=== PATIENT | female | born 1995 | race American Indian/Alaskan Native ===

== ENCOUNTER 2017-09-30 12:58 | Outpatient (CLI) | payer MEDICAID ==
[2017-09-30 15:12] VITALS: BP 117/71
[2017-09-30 15:27] LABS: Bacteria,Urine 1+ /HPF (Negative); Bilirubin,Urine NEG (Negative); Blood,Urine NEG (Negative); Color,Urine Yellow (Yellow); Mucus,Urine FEW /HPF; Nitrite,Urine NEG (Negative); Protein,Urine <15 mg/dL mg/dL (Negative); RBC,Urine < 1.0 /HPF (0.0-6.0)
== END 2017-09-30 15:50 | disposition home or self-care (01) ==
LOC: TRG 12:58
PROVIDERS: ATTEND Obstetrics & Gynecology
DX: O47.1 False labor at or after 37 completed weeks of gestation (principal); Z3A.37 37 weeks gestation of pregnancy
CPT/HCPCS: 59025; 81001

== ENCOUNTER 2017-10-14 12:02 | Inpatient (IN) | payer MEDICAID ==
[2017-10-14] MEDS ORDERED: BRETHINE SUB-Q PRN (12:51)
[2017-10-14] MEDS ORDERED: MINERAL OIL PO PRN (12:51)
[2017-10-14] MEDS ORDERED: ePHEDrine SULFATE IV PRN (12:51)
[2017-10-14] MEDS ORDERED: BRETHINE IVP PRN (12:51)
[2017-10-14] MEDS ORDERED: XYLOCAINE 2% INFILTRATI ONE (12:51)
[2017-10-14] MEDS ORDERED: PITOCin/NS 20 UNIT/1000ML DRIP 20 UNITS/1,000 ML BAG IV SCH (13:00)
[2017-10-14] MEDS ORDERED: CERVIDIL VG ONE (13:43)
[2017-10-14] MEDS ORDERED: SUBLIMAZE IV PRN ×2 (13:43→14:00)
[2017-10-14 13:45] LABS: Hematocrit 36.3 % (30.3-42.9); Hemoglobin 12.5 gm/dl (10.1-14.3); Mean Corpuscular HGB Conc 35 % (30-34); Mean Corpuscular Hemoglobin 29 pg (28-32); Mean Corpuscular Volume 84 fl (79-97); Platelet Count 221 K/mm3 (140-440); Red Blood Count 4.31 M/mm3 (3.65-5.03); Red Cell Distribution Width 14.4 % (13.2-15.2)
[2017-10-14 13:45] LABS: Bacteria,Urine 1+ /HPF (Negative); Bilirubin,Urine NEG (Negative); Blood,Urine NEG (Negative); Color,Urine Straw (Yellow); Nitrite,Urine NEG (Negative); Protein,Urine <15 mg/dL mg/dL (Negative); Urobilinogen,Urine < 2.0 mg/dL (<2.0)
[2017-10-14 13:52] LABS: WBC,Urine < 1.0 /HPF (0.0-6.0)
--- NOTE | 2017-10-14 13:58 | History and Physical Report ---
History of Present Illness Date of admission: 10/14/17 12:02 Chief complaint: IOL for oligohydramnios History of present illness: 22yo G 3 P 2 0 0 2 at 39 weeks 1 day here from [facility] for IOL secondary to oligo. She had a BPP of 6/10 with SONIA of 3.72cm and nonreactive NST. Her care is comanaged with [facility] due to morbid obesity. She reports positive FMs but denies UCs or VB. Her course is complicated by abn pap (LSIL) & Vit D deficiency. Repeat pap recommended in 1 year. She was on vit D supplement. She is varicella nonimmune and GBS positive. 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, other (HPV) Family/Genetic History: diabetes, hypertension, other (hypercholesterolemia) - Obstetrical History Expected Date of Delivery: 10/20/17 Actual Gestation: 39 Week(s) 2 Day(s) : 3 Para: 2 Hx # Term Pregnancies: 2 Number of Pregnancies: 0 Spontaneous Abortions: 0 Induced : 0 Number of Living Children: 2 #1 Gender: Female year: 2,013 (05/21/2014) Birthweight: 3.09 kg Method of Delivery: Vaginal Gestational age at delivery: 41 Complications: none #2 Infant Gender: Female year: 2,[birth year] (03/22/2016) Birthweight: 2.977 kg Method of Delivery: Vaginal Gestational age at delivery: 39 Complications: none Medications and Allergies Allergies Allergy/AdvReac Type Severity Reaction Status Date / Time No Known Allergies Allergy Verified 09/30/17 14:22 Home Medications Medication Instructions Recorded Confirmed Last Taken Type No Known Home Medications [No 05/21/15 10/14/17 Unknown History Reported Home Medications] Active Meds: Active Medications Butorphanol Tartrate (Stadol) 2 mg IV Q2H PRN PRN Reason: Pain , Severe (7-10) Dinoprostone (Cervidil) 10 mg VG ONCE ONE Stop: 10/14/17 13:44 Ephedrine Sulfate (Ephedrine Sulfate) 10 mg IV Q2M PRN PRN Reason: Hypotension Fentanyl (Sublimaze) 100 mcg IV Q2H PRN PRN Reason: Labor Pain Lactated Ringer's (Lactated Ringers) 1,000 mls @ 125 mls/hr IV DIRECT NABIL Oxytocin/Sodium Chloride (Pitocin/Ns 20 Unit/1000ml Drip) 20 units in 1,000 mls @ 125 mls/hr IV DIRECT NABIL Oxytocin/Sodium Chloride (Pitocin/Ns 30 Unit/500ml) 30 units in 500 mls @ 1 mls /hr IV TITR NABIL; 1 MILLIUNITS/MIN PRN Reason: Protocol Influenza Virus Vaccine Quadrival (Fluarix Quad [id number](36 Mos+) 0.5 ml IM .ONCE ONE Stop: 10/15/17 12:01 Mineral Oil (Mineral Oil) 30 ml PO QHS PRN PRN Reason: Constipation Terbutaline Sulfate (Brethine) 0.25 mg SUB-Q ONCE PRN PRN Reason: Hyperstimulation/Hypertonicity Terbutaline Sulfate (Brethine) 0.25 mg IVP ONCE PRN PRN Reason: Hyperstimulation/Hypertonicity Review of Systems All systems: negative - Vital Signs Vital signs: Vital Signs Pulse BP 95 H 158/108 10/14/17 12:34 10/14/17 12:34 Temp Pulse Resp BP Pulse Ox 97.7 F 78 14 129/81 98 10/14/17 12:54 10/14/17 13:57 10/14/17 12:54 10/14/17 13:57 10/14/17 13:20 - Physical Exam Breasts: Positive: deferred Cardiovascular: Regular rate, Normal S1, Normal S2, No murmurs Lungs: Positive: Clear to auscultation, Normal air movement Abdomen: Positive: normal appearance, soft Genitourinary (Female): Positive: normal external genitalia, normal perenium Vulva: both: normal Vagina: Positive: normal moisture Uterus: Positive: normal size, normal contour Anus/Rectum: Positive: normal perianal skin Extremities: Positive: normal - Obstetrical FHR: auscultation normal, category 1 FHR comments: baseline 130, moderate variability, 15x15 accels, no decels Uterine Contraction Monitor Mode: External Cervical Dilatation: 1 (per RN) Cervical Effacement Percentage: 30 (per RN) station: -3 Uterine Contraction Pattern: Absent Results Result Diagrams: 10/14/17 13:30 10/14/17 13:30 Abnormal lab results 10/14/17 Range/Units 13:30 MCHC 35 H (30-34) % All other labs normal. Assessment and Plan - Patient Problems (1) Oligohydramnios in hood in third trimester Current Visit: Yes Status: Acute Plan to address problem: Admit to L&D for IOL with routine labor orders Start cervidil for cervical ripening Anticipate vaginal delivery (2) 39 weeks gestation of Current Visit: Yes Status: Acute (3) Gestational hypertension without significant proteinuria Current Visit: Yes Status: Acute Plan to address problem: STAT PIH labs (4) Morbid obesity with BMI of 45.0-49.9, adult Current Visit: Yes Status: Acute (5) GBS (group B Streptococcus carrier), +RV culture, currently Current Visit: Yes Status: Acute Plan to address problem: Start Ampicillin for GBS prophylaxis when in active labor
[2017-10-14 14:03] LABS: Alanine Aminotransferase 14 units/L (7-56)
[2017-10-14 14:33] LABS: Uric Acid 6.1 mg/dL (3.5-7.6)
[2017-10-15] MEDS: LACTATED RINGERS 1,000 ML IV SCH ×2 (04:58→12:52)
[2017-10-15] MEDS: PITOCin/NS 30 UNIT/500ML 30 UNITS/500 ML BAG IV SCH ×2 (05:00→06:18)
[2017-10-15] MEDS ORDERED: Fluarix Quad 2017-2018(36 MOS+ IM ONE (12:00)
--- NOTE | 2017-10-15 13:44 | Event Note ---
Date: 10/15/17 S: Pt lying in bed with her mom by the bedside. She is feeling her contractions but very mild. O: BP 122/75, HR 79, Pulse ox 99% FHR baseline 135, moderate variability, + accels, no decels CTXS q3mins (per pt) SVE 2/50/-3/vtx/intact Pitocin @ 20 mu/min A: 22yo G 3 P 2 0 0 2 @ 39 weeks 2 days IOL for oligo No active labor P: Continue routine labor orders Continue Oxytocin for labor induction Start ampicillin for GBS prophylaxis when in active labor Anticipate vaginal delivery
[2017-10-15] MEDS ORDERED: AMBIEN PO PRN (22:07)
[2017-10-16] MEDS ORDERED: PITOCin/NS 30 UNIT/500ML 30 UNITS/500 ML BAG IV SCH (06:00)
[2017-10-16] MEDS: LACTATED RINGERS 1,000 ML IV SCH ×2 (06:07→14:22)
--- NOTE | 2017-10-16 13:13 | Progress Note ---
Assessment and Plan - Patient Problems (1) Oligohydramnios in hood in third trimester Current Visit: Yes Status: Acute Plan to address problem: Continue routine labor orders Continue Oxytocin for labor induction Anticipate vaginal delivery (2) 39 weeks gestation of Current Visit: Yes Status: Acute (3) Morbid obesity with BMI of 45.0-49.9, adult Current Visit: Yes Status: Acute (4) GBS (group B Streptococcus carrier), +RV culture, currently Current Visit: Yes Status: Acute Plan to address problem: Start Ampicillin for GBS prophylaxis when in active labor Subjective - Subjective Date of service: 10/16/17 Principal diagnosis: IOL secondary to Oligo, 39w2d Interval history: 22yo G 3 P 2 0 0 2 at 39 weeks 1 day here from [facility] for IOL secondary to oligo. She had a BPP of 6/10 with SONIA of 3.72cm and nonreactive NST. Her care is comanaged with [facility] due to morbid obesity. She reports positive FMs but denies UCs or VB. Her course is complicated by abn pap (LSIL) & Vit D deficiency. Repeat pap recommended in 1 year. She was on vit D supplement. She is varicella nonimmune and GBS positive. Patient reports: movement normal, contractions (pain level 7/10; tolerable ) Objective - Vital Signs Vital Signs: Vital Signs - 12hr 10/16/17 10/16/17 10/16/17 01:15 01:20 01:25 Temperature Pulse Rate 105 H 104 H 98 H Respiratory Rate Blood Pressure Blood Pressure [Right] O2 Sat by Pulse 99 98 99 Oximetry 10/16/17 10/16/17 10/16/17 01:30 01:35 01:40 Temperature Pulse Rate 90 103 H 104 H Respiratory Rate Blood Pressure Blood Pressure [Right] O2 Sat by Pulse 98 97 97 Oximetry 10/16/17 10/16/17 10/16/17 01:45 03:00 03:33 Temperature 96.8 F L Pulse Rate 102 H 109 H Respiratory 20 Rate Blood Pressure Blood Pressure [Right] O2 Sat by Pulse 98 99 Oximetry 10/16/17 10/16/17 10/16/17 03:38 03:43 03:48 Temperature Pulse Rate 103 H 103 H 97 H Respiratory Rate Blood Pressure Blood Pressure [Right] O2 Sat by Pulse 98 98 99 Oximetry 10/16/17 10/16/17 10/16/17 03:53 03:58 04:03 Temperature Pulse Rate 104 H 99 H 103 H Respiratory Rate Blood Pressure Blood Pressure [Right] O2 Sat by Pulse 98 98 98 Oximetry 10/16/17 10/16/17 10/16/17 04:08 04:13 04:18 Temperature Pulse Rate 102 H 99 H 110 H Respiratory Rate Blood Pressure Blood Pressure [Right] O2 Sat by Pulse 98 99 98 Oximetry 10/16/17 10/16/17 10/16/17 04:23 04:28 04:29 Temperature Pulse Rate 96 H 104 H 81 Respiratory Rate Blood Pressure Blood Pressure [Right] O2 Sat by Pulse 97 98 94 Oximetry 10/16/17 10/16/17 10/16/17 04:33 04:38 04:41 Temperature Pulse Rate 92 H 98 H 103 H Respiratory Rate Blood Pressure Blood Pressure [Right] O2 Sat by Pulse 99 98 94 Oximetry 10/16/17 10/16/17 10/16/17 04:43 04:45 04:47 Temperature Pulse Rate 101 H 99 H 104 H Respiratory Rate Blood Pressure 133/81 Blood Pressure [Right] O2 Sat by Pulse 97 93 Oximetry 10/16/17 10/16/17 10/16/17 04:48 04:53 04:58 Temperature Pulse Rate 94 H 104 H 99 H Respiratory Rate Blood Pressure Blood Pressure [Right] O2 Sat by Pulse 94 97 98 Oximetry 10/16/17 10/16/17 10/16/17 05:03 05:08 05:13 Temperature Pulse Rate 91 H 94 H 99 H Respiratory Rate Blood Pressure Blood Pressure [Right] O2 Sat by Pulse 97 98 97 Oximetry 10/16/17 10/16/17 10/16/17 05:18 05:23 05:29 Temperature Pulse Rate 95 H 98 H 101 H Respiratory Rate Blood Pressure Blood Pressure [Right] O2 Sat by Pulse 98 98 98 Oximetry 10/16/17 10/16/17 10/16/17 05:33 05:39 05:44 Temperature Pulse Rate 97 H 99 H 90 Respiratory Rate Blood Pressure Blood Pressure [Right] O2 Sat by Pulse 98 99 99 Oximetry 10/16/17 10/16/17 10/16/17 05:48 05:53 05:55 Temperature Pulse Rate 87 92 H 104 H Respiratory Rate Blood Pressure Blood Pressure [Right] O2 Sat by Pulse 98 99 93 Oximetry 10/16/17 10/16/17 10/16/17 05:59 06:04 06:09 Temperature Pulse Rate 99 H 98 H 95 H Respiratory Rate Blood Pressure Blood Pressure [Right] O2 Sat by Pulse 98 99 98 Oximetry 10/16/17 10/16/17 10/16/17 06:13 06:32 06:36 Temperature Pulse Rate 110 H 108 H 103 H Respiratory Rate Blood Pressure Blood Pressure [Right] O2 Sat by Pulse 100 100 98 Oximetry 10/16/17 10/16/17 10/16/17 06:42 06:47 06:52 Temperature Pulse Rate 96 H 92 H 97 H Respiratory Rate Blood Pressure Blood Pressure [Right] O2 Sat by Pulse 98 99 99 Oximetry 10/16/17 10/16/17 10/16/17 06:57 07:01 07:02 Temperature 96.1 F L Pulse Rate 96 H 99 H 94 H Respiratory 16 Rate Blood Pressure 130/95 Blood Pressure 141/98 [Right] O2 Sat by Pulse 99 98 Oximetry 10/16/17 10/16/17 10/16/17 07:07 07:08 07:12 Temperature Pulse Rate 104 H 100 H 96 H Respiratory Rate Blood Pressure 137/102 141/98 Blood Pressure [Right] O2 Sat by Pulse 98 97 Oximetry 10/16/17 10/16/17 10/16/17 07:13 07:17 07:22 Temperature Pulse Rate 106 H 91 H Respiratory Rate Blood Pressure Blood Pressure [Right] O2 Sat by Pulse 45 L 99 94 Oximetry 10/16/17 10/16/17 10/16/17 07:27 07:31 07:32 Temperature Pulse Rate 102 H 96 H 88 Respiratory Rate Blood Pressure 131/87 Blood Pressure [Right] O2 Sat by Pulse 98 98 Oximetry 10/16/17 10/16/17 10/16/17 07:37 07:42 07:47 Temperature Pulse Rate 98 H 101 H 94 H Respiratory Rate Blood Pressure Blood Pressure [Right] O2 Sat by Pulse 98 99 98 Oximetry 10/16/17 10/16/17 10/16/17 07:52 07:57 08:01 Temperature Pulse Rate 93 H 98 H 93 H Respiratory Rate Blood Pressure 127/80 Blood Pressure [Right] O2 Sat by Pulse 99 99 Oximetry 10/16/17 10/16/17 10/16/17 08:02 08:05 08:07 Temperature Pulse Rate 106 H 94 H 97 H Respiratory Rate Blood Pressure Blood Pressure [Right] O2 Sat by Pulse 99 94 99 Oximetry 10/16/17 10/16/17 10/16/17 08:12 08:17 08:22 Temperature Pulse Rate 90 90 111 H Respiratory Rate Blood Pressure Blood Pressure [Right] O2 Sat by Pulse 99 98 98 Oximetry 10/16/17 10/16/17 10/16/17 08:27 08:31 08:32 Temperature Pulse Rate 96 H 93 H 83 Respiratory Rate Blood Pressure 124/90 Blood Pressure [Right] O2 Sat by Pulse 99 99 Oximetry 10/16/17 10/16/17 10/16/17 08:37 08:42 08:47 Temperature Pulse Rate 98 H 98 H 96 H Respiratory Rate Blood Pressure Blood Pressure [Right] O2 Sat by Pulse 98 98 97 Oximetry 10/16/17 10/16/17 10/16/17 08:52 08:57 09:01 Temperature Pulse Rate 83 97 H 95 H Respiratory Rate Blood Pressure 124/78 Blood Pressure [Right] O2 Sat by Pulse 98 98 Oximetry 10/16/17 10/16/17 10/16/17 09:02 09:07 09:12 Temperature Pulse Rate 83 95 H 89 Respiratory Rate Blood Pressure Blood Pressure [Right] O2 Sat by Pulse 99 98 97 Oximetry 10/16/17 10/16/17 10/16/17 09:17 09:22 09:27 Temperature Pulse Rate 109 H 101 H 94 H Respiratory Rate Blood Pressure Blood Pressure [Right] O2 Sat by Pulse 97 98 99 Oximetry 10/16/17 10/16/17 10/16/17 09:59 10:04 10:09 Temperature Pulse Rate 89 94 H 82 Respiratory Rate Blood Pressure Blood Pressure [Right] O2 Sat by Pulse 99 98 99 Oximetry 10/16/17 10/16/17 10/16/17 10:14 10:19 10:24 Temperature Pulse Rate 97 H 111 H 103 H Respiratory Rate Blood Pressure Blood Pressure [Right] O2 Sat by Pulse 98 99 98 Oximetry 10/16/17 10/16/17 10/16/17 10:29 10:34 10:39 Temperature Pulse Rate 93 H 87 91 H Respiratory Rate Blood Pressure Blood Pressure [Right] O2 Sat by Pulse 98 98 99 Oximetry 10/16/17 10/16/17 10/16/17 10:44 10:49 10:54 Temperature Pulse Rate 96 H 86 92 H Respiratory Rate Blood Pressure Blood Pressure [Right] O2 Sat by Pulse 99 99 99 Oximetry 10/16/17 10/16/17 10/16/17 10:59 11:04 11:09 Temperature Pulse Rate 95 H 94 H 101 H Respiratory Rate Blood Pressure Blood Pressure [Right] O2 Sat by Pulse 99 99 99 Oximetry 10/16/17 10/16/17 10/16/17 11:14 11:19 11:24 Temperature Pulse Rate 105 H 88 94 H Respiratory Rate Blood Pressure Blood Pressure [Right] O2 Sat by Pulse 99 100 100 Oximetry 10/16/17 10/16/17 10/16/17 11:29 11:34 11:39 Temperature Pulse Rate 91 H 95 H 93 H Respiratory Rate Blood Pressure Blood Pressure [Right] O2 Sat by Pulse 99 99 100 Oximetry 10/16/17 10/16/17 10/16/17 11:44 11:46 11:50 Temperature 96.6 F L Pulse Rate 93 H 98 H 98 H Respiratory 16 Rate Blood Pressure 130/78 Blood Pressure 130/78 [Right] O2 Sat by Pulse 99 Oximetry 10/16/17 10/16/17 10/16/17 11:59 12:04 12:09 Temperature Pulse Rate 53 L 83 94 H Respiratory Rate Blood Pressure Blood Pressure [Right] O2 Sat by Pulse 99 98 98 Oximetry 10/16/17 10/16/17 10/16/17 12:14 12:19 12:24 Temperature Pulse Rate 88 107 H 92 H Respiratory Rate Blood Pressure Blood Pressure [Right] O2 Sat by Pulse 91 98 98 Oximetry 10/16/17 10/16/17 10/16/17 12:29 12:34 12:39 Temperature Pulse Rate 85 100 H 85 Respiratory Rate Blood Pressure Blood Pressure [Right] O2 Sat by Pulse 99 98 98 Oximetry 10/16/17 10/16/17 10/16/17 12:44 12:49 12:54 Temperature Pulse Rate 90 81 87 Respiratory Rate Blood Pressure Blood Pressure [Right] O2 Sat by Pulse 99 98 99 Oximetry 10/16/17 10/16/17 12:59 13:04 Temperature Pulse Rate 89 89 Respiratory Rate Blood Pressure Blood Pressure [Right] O2 Sat by Pulse 98 99 Oximetry - Exam Cardiovascular: Regular rate, Normal S1, Normal S2, No murmurs Lungs: Clear to auscultation, Normal air movement Abdomen: Present: normal appearance, soft Vulva: both: normal Uterus: Present: normal FHR: auscultation normal, category 1 FHR comments: baseline 135, moderate variability, + accels, no decels Uterine Contraction Monitor Mode: External Cervical Dilatation: 2.5 Cervical Effacement Percentage: 50 station: -3 Uterine Contraction Pattern: Regular - Labs Labs: Abnormal Labs 10/14/17 10/14/17 13:30 13:30 MCHC 35 H Creatinine 0.5 L Lactate Dehydrogenase 213 H
[2017-10-16] MEDS: STADOL IV PRN ×2 (14:22→16:13)
[2017-10-16] MEDS ORDERED: NARCAN 2 MG/2 ML ONE (16:57)
[2017-10-16] MEDS ORDERED: PHENERGAN PO PRN (17:40)
[2017-10-16] MEDS ORDERED: NORCO 5/325 PO PRN (17:40)
[2017-10-16] MEDS ORDERED: LANSINOH TP PRN (17:40)
[2017-10-16] MEDS ORDERED: BENADRYL PO PRN (17:40)
[2017-10-16] MEDS ORDERED: MILK OF MAGNESIA PO PRN (17:40)
[2017-10-16] MEDS ORDERED: DULCOLAX PR PRN (17:40)
[2017-10-16] MEDS ORDERED: PHENERGAN PR PRN (17:40)
[2017-10-16] MEDS ORDERED: TYLENOL PO PRN (17:40)
[2017-10-16] MEDS ORDERED: TUCKS PAD TP PRN (17:40)
[2017-10-16] MEDS ORDERED: ZOFRAN IV PRN (17:40)
--- NOTE | 2017-10-16 17:56 | Procedure Note ---
OB Delivery Note - Delivery Date of Delivery: 10/16/17 (16:57) Surgeon: SHERMAN GONZÁLES Estimated blood loss: 200cc - Vaginal Delivery presentation: vertex Delivery position: OA Intrapartum events: prolonged latent phase, other(please specify) (precipitous active phase) Delivery induction: cervidil (later oxytocin) Delivery monitor: external FHT, external uterine Route of delivery: (16:57) Delivery placenta: spontaneous (17:06) Delivery cord: 3 umbilical vessels Episiotomy: none Delivery laceration: 1st degree (vaginal), vaginal side wall (left) Delivery repair: vicryl (3-0) Anesthesia: local Delivery comments: of a less vigorous term male @ 16:57. Baby placed on maternal abdomen and with stimulation became more vigorous. After 3 mins, umbilical cord double- clamped by CNM and cut by FOB. Placenta spontaneously delivered @ 17:06; Hang- side presenting. Moderate lochia noted. Fundal massage and IV pitocin bolus initiated. Fundus F/ML/U-2. Small lochia present. Small 1st degree vaginal laceration noted and repaired using 3-0 vicryl needle with just one stitch under local anesthesia. Pt tolerated the procedure well. Placenta intact; was discarded. Baby tachypneic per RN and resp called for evaluation. Baby transfered to NICU for observation. Mom in stable condition. - Infant A at 1 minute: 8 at 5 minutes: 9 Gender: Male (6 lbs 14 oz (3117 g); 18 in)
[2017-10-16] MEDS ORDERED: SODIUM CHLORIDE FLUSH SYRINGE 10 ML IV NR (18:00)
[2017-10-17] MEDS: MOTRIN PO SCH ×5 (00:07→23:36)
[2017-10-17 05:26] LABS: Hemoglobin 11.1 gm/dl (10.1-14.3)
--- NOTE | 2017-10-17 10:02 | Progress Note ---
Assessment and Plan A: PP Day #1 Stable P: Follow Routine Orders Depo Provera prior to discharge Plans Nexplanon at 6 Weeks D/C home in the AM RTO in 6 weeks Subjective - Subjective Date of service: 10/17/17 Principal diagnosis: IOL secondary to Oligo, 39w2d Patient reports: appetite normal, voiding normally, pain well controlled, flatus , ambulating normally : in NICU Objective - Vital Signs Latest vital signs: Vital Signs Temp Pulse Resp BP BP Pulse Ox 10/17/17 00:00 97.8 F 84 20 111/76 10/16/17 19:25 98.3 F 77 18 119/73 10/16/17 18:22 88 118/74 10/16/17 18:11 93 H 138/93 10/16/17 17:37 92 H 133/90 10/16/17 17:22 85 137/89 10/16/17 13:04 89 99 10/16/17 12:59 89 98 10/16/17 12:54 87 99 10/16/17 12:49 81 98 10/16/17 12:44 90 99 18 12:39 85 98 10/16/17 12:34 100 H 98 18 12:29 85 99 10/16/17 12:24 92 H 98 10/16/17 12:19 107 H 98 10/16/17 12:14 88 91 18 12:09 94 H 98 10/16/17 12:04 83 98 18 11:59 53 L 99 18 11:50 98 H 130/78 18 11:46 96.6 F L 98 H 16 130/78 18 11:44 93 H 99 18 11:39 93 H 100 18 11:34 95 H 99 18 11:29 91 H 99 18 11:24 94 H 100 18 11:19 88 100 18 11:14 105 H 99 18 11:09 101 H 99 10/16/17 11:04 94 H 99 18 10:59 95 H 99 18 10:54 92 H 99 18 10:49 86 99 18 10:44 96 H 99 02/18/18 10:39 91 H 99 10/16/17 10:34 87 98 10/16/17 10:29 93 H 98 10/16/17 10:24 103 H 98 10/16/17 10:19 111 H 99 10/16/17 10:14 97 H 98 10/16/17 10:09 82 99 10/16/17 10:04 94 H 98 Intake and Output 10/16/17 10/17/17 10/17/17 22:59 06:59 14:59 Intake Total 240 Balance 240 Intake: Oral 240 Other: Total, Intake Amount 240 # Voids Void 3 Estimated Blood Loss 200 - Exam Breasts: Present: normal Cardiovascular: Present: Regular rate Lungs: Present: Clear to auscultation, Normal air movement Abdomen: Present: normal appearance, soft, normal bowel sounds Uterus: Present: normal, firm, fundal height below umbilicus Extremities: Present: normal
--- NOTE | 2017-10-17 10:03 | Discharge Summary ---
Providers - Providers Date of Admission: 10/14/17 12:02 Date of discharge: 10/18/17 Attending physician: VAMSI GRAY MD Primary care physician: VAMSI GRAY MD Hospitalization Reason for admission: induction of labor Delivery: Episiotomy: none Laceration: 1st degree Other procedures: none complications: none Discharge diagnosis: IUP at term delivered [place] baby: male Condition at discharge: Good Disposition: DC-01 TO HOME OR SELFCARE Plan - Provider Discharge Summary Activity: routine, no sex for 6 weeks, no heavy lifting 4 weeks, no strenuous exercise Diet: routine Instructions: routine Additional instructions: [] Smoking cessation referral if applicable(refer to patient education folder for contact #) [] Refer to [facility] Booklet Call your doctor immediately for: * Fever > 100.5 * Heavy vaginal bleeding ( >1 pad per hour) * Severe persistent headache * Shortness of breath * Reddened, hot, painful area to leg or breast * Drainage or odor from incision. * Keep incision clean and dry at all times and follow doctor's instructions regarding bathing/showering - Follow up plan Follow up: VAMSI GRAY MD [Primary Care Provider] - 6 Weeks
[2017-10-17] MEDS ORDERED: DEPO-PROVERA (CONTRACEPTION) IM NR (10:30)
[2017-10-17] MEDS: PRENATAL VITAMIN PO SCH (14:33)
[2017-10-18] MEDS ORDERED: BOOSTRIX IM ONE (06:00)
[2017-10-18] MEDS: MOTRIN PO SCH ×2 (06:10→13:02)
[2017-10-18] MEDS: PRENATAL VITAMIN PO SCH (10:35)
[2017-10-18 16:56] VITALS: BP 123/77
== END 2017-10-18 16:10 | disposition home or self-care (01) | DRG 774 ==
LOC: LD 12:02 → OB 10-16 20:10
PROVIDERS: ADMIT Obstetrics & Gynecology; ATTEND Obstetrics & Gynecology
PROC: 10E0XZZ Delivery of Products of Conception, External Approach (ICD-10-PCS; principal; 2017-10-16)
PROC: 3E0P7VZ Introduction of Hormone into Female Reproductive, Via Natural or Artificial Opening (ICD-10-PCS; 2017-10-16)
PROC: 0HQ9XZZ Repair Perineum Skin, External Approach (ICD-10-PCS; 2017-10-16)
PROC: 3E0234Z Introduction of Serum, Toxoid and Vaccine into Muscle, Percutaneous Approach (ICD-10-PCS; 2017-10-18)
DX: O41.03X0 Oligohydramnios, third trimester, not applicable or unspecified (principal); O13.4 Gestational [pregnancy-induced] hypertension without significant proteinuria, complicating childbirth; O99.214 Obesity complicating childbirth; E66.01 Morbid (severe) obesity due to excess calories; O63.9 Long labor, unspecified; O62.3 Precipitate labor; O70.0 First degree perineal laceration during delivery; Z3A.39 39 weeks gestation of pregnancy; Z37.0 Single live birth; Z23 Encounter for immunization; Z83.3 Family history of diabetes mellitus; Z82.49 Family history of ischemic heart disease and other diseases of the circulatory system; Z68.42 Body mass index [BMI] 45.0-49.9, adult; O99.824 Streptococcus B carrier state complicating childbirth
CPT/HCPCS: 36415; 81001; 82565; 83615; 84450; 84460; 84550; 85014; 85018; 85027; 86592; 86850; 86900; 86901; 90471; 90686; 90715; 99211; G0463; J0595; J2310; J2590; J7120

== ENCOUNTER 2020-03-29 14:00 | Outpatient (CLI) | payer MEDICAID ==
[2020-03-29 14:48] VITALS: BP 116/59
[2020-03-29 17:35] LABS: Bilirubin,Urine NEG (Negative); Blood,Urine NEG (Negative); Color,Urine Yellow (Yellow); Mucus,Urine FEW /HPF; Protein,Urine <15 mg/dL mg/dL (Negative)
[2020-03-29] MEDS ORDERED: LACTATED RINGERS 500 ML IV ONE (18:24)
== END 2020-03-29 18:25 | disposition home or self-care (01) ==
LOC: TRG 14:00 → APU 14:02 → TRG 18:25
PROVIDERS: ATTEND Obstetrics & Gynecology
DX: O26.893 Other specified pregnancy related conditions, third trimester (principal); R10.9 Unspecified abdominal pain; Z3A.29 29 weeks gestation of pregnancy
CPT/HCPCS: 81001

== ENCOUNTER 2020-04-25 16:17 | Observation (INO) | payer MEDICAID ==
[2020-04-25] MEDS ORDERED: DOCUSATE SODIUM 100 MG CAP PO PRN (17:49)
[2020-04-25] MEDS ORDERED: diphenhydrAMINE 25 MG CAP PO PRN (17:49)
[2020-04-25] MEDS ORDERED: MAGNESIUM HYDROXIDE (MOM) ORAL LIQD UDC PO PRN (17:49)
[2020-04-25] MEDS ORDERED: guaiFENesin DM 200/20 MG ORAL LIQD 10 ML PO PRN (17:49)
[2020-04-25] MEDS ORDERED: ONDANSETRON 4 MG/2 ML INJ IV PRN (17:49)
[2020-04-25] MEDS ORDERED: SODIUM CHLORIDE NASAL SPRAY 44ML NS PRN (17:49)
[2020-04-25] MEDS ORDERED: ACETAMINOPHEN 325 MG TAB PO PRN (17:49)
[2020-04-25] MEDS ORDERED: PSEUDOEPHEDRINE 30 MG TAB PO PRN (17:49)
[2020-04-25] MEDS ORDERED: SENNOSIDES/DOCUSATE SODIUM 8.6/50 MG TAB PO PRN (17:49)
[2020-04-25] MEDS ORDERED: WITCH HAZEL/ GLYCERIN PAD TP PRN (17:49)
[2020-04-25] MEDS ORDERED: SIMETHICONE 80 MG CHEW TAB PO PRN (17:49)
[2020-04-25] MEDS ORDERED: LACTATED RINGERS 1,000 ML IV ONE (17:56)
[2020-04-25] MEDS ORDERED: LACTATED RINGERS 1,000 ML IV SCH (18:00)
--- NOTE | 2020-04-25 18:50 | History and Physical Report ---
History of Present Illness Date of examination: 04/25/20 Date of admission: 04/25/2020 Chief complaint: SOB History of present illness: 25 yo at 33w4d c/b GDM (on glyburide), Hx PIH in 2018 (on Aspirin), schizophrenia (on Haldol) with di/di twin presenting from [facility] clinic with complaint of SOB x 1-2 days. Mild chest discomfort associated with activity. Denies hx allergies, sick contacts. Denies current chest pain, congestion, loss of taste/smell, N/V, diarrhea. Reports symptoms improved when lying on side. Denies labor complaints or PIH symptoms. Active fetus x 2. Past History Past Medical History: other (GDM, Schizophrenia, obesity (class III), h/o pre-E. 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 (leg surgery) [employer] History: abnormal PAP smear Family/Genetic History: diabetes, hypertension Social history: no significant social history - Obstetrical History : 5 Para: 3 Hx # Term Pregnancies: 3 Number of Pregnancies: 1 Spontaneous Abortions: 0 Number of Living Children: 5 Medications and Allergies Allergies Allergy/AdvReac Type Severity Reaction Status Date / Time No Known Allergies Allergy Verified 09/30/17 14:22 Home Medications Medication Instructions Recorded Confirmed Last Taken Type Haldol 5 mg PO DAILY 04/11/20 04/25/20 04/24/20 21:00 History Aspirin [Aspirin BABY CHEW TAB] 81 mg PO QDAY tab.chew 04/12/20 04/25/20 04/24/20 21:00 Rx glyBURIDE [Diabeta] 2.5 mg PO QHS #30 tablet 04/12/20 04/25/20 04/24/20 21:00 Rx glyBURIDE [Diabeta] 5 mg PO QAM #30 tablet 04/12/20 04/25/20 04/24/20 21:00 Rx haloperidoL [Haldol] 5 mg PO HS tablet 04/12/20 04/25/20 04/24/20 21:00 Rx Active Meds: Active Medications Acetaminophen (Tylenol) 650 mg PO Q4H PRN PRN Reason: Pain MILD(1-3)/Fever >100.5/DIAZ Al Hydrox/Mg Hydrox/Simethicone (Alum-Mag Hydrox-Simeth 108-123-72lx/5ml) 30 ml PO Q6H PRN PRN Reason: Indigestion Diphenhydramine HCl (Benadryl) 25 mg PO Q6H PRN PRN Reason: Itching Docusate Sodium (Colace) 100 mg PO Q12H PRN PRN Reason: Constipation Glyburide (Diabeta) 5 mg PO BIDDIAB NABIL Guaifenesin (Guaifenesin Dm Syrup) 10 ml PO Q6H PRN PRN Reason: Cough Haloperidol (Haldol) 5 mg PO QHS NABIL Lactated Ringer's (Lactated Ringers) 1,000 mls @ 125 mls/hr IV DIRECT NABIL Lactated Ringer's (Lactated Ringers) 1,000 mls @ 999 mls/hr IV BOLUS ONE Stop: 04/25/20 18:56 Magnesium Hydroxide (Milk Of Magnesia) 30 ml PO QHS PRN PRN Reason: Laxative Effect Multivitamins/Iron/Calcium ( Vitamin) 1 each PO QDAY NABIL Ondansetron HCl (Zofran) 4 mg IV Q6H PRN PRN Reason: Nausea And Vomiting Pseudoephedrine HCl (Sudafed) 30 mg PO Q4H PRN PRN Reason: Nasal Congestion Senna/Docusate Sodium (Senokot S) 2 tab PO Q12H PRN PRN Reason: Laxative Effect Simethicone (Mylicon) 80 mg PO Q6H PRN PRN Reason: Gas pain Sodium Chloride (Deep Sea) 2 spray NS Q4H PRN PRN Reason: Congestion Witch Radha/Glycerin (Tucks Pad) 1 each TP PRN PRN PRN Reason: Hemorrhoids - Vital Signs Vital signs: Vital Signs Temp Pulse Resp BP 98.7 F 137 H 16 113/72 04/25/20 17:23 04/25/20 17:23 04/25/20 17:23 04/25/20 17:23 Temp Pulse Resp BP Pulse Ox 98.7 F 110 H 16 113/72 99 04/25/20 17:23 04/25/20 17:56 04/25/20 17:23 04/25/20 17:23 04/25/20 17:56 - Physical Exam Breasts: Positive: deferred Cardiovascular: Regular rate, Normal S1, Normal S2 Lungs: Positive: Clear to auscultation, Other (mild expiratory wheezes in bilateral lung bases) Abdomen: Positive: normal appearance, other (gravid) - Obstetrical FHR: category 1 Uterine Contraction Monitor Mode: Palpation Uterine Contraction Pattern: Absent Results Result Diagrams: 04/25/20 17:49 04/25/20 Unknown All other labs normal. Assessment and Plan - Patient Problems (1) Schizophrenia Current Visit: Yes Status: Acute Plan to address problem: No current issues. Continue home Haldol 5mg QHS. (2) Twin gestation in third trimester Current Visit: Yes Status: Acute Plan to address problem: No current issues. Routine antepartum care. (3) Shortness of breath during Current Visit: Yes Status: Acute Plan to address problem: --New onset SOB of unclear origin. No sick contacts or recent illness. Persistent tachycardia to 120-130s with normal saturation. Need to r/o series cardiopulmonary pathology such as PE. --CBC, CMP, Troponin, CXR, EKG, COVID test ordered --Dispo pending improvement of symptoms (4) Gestational diabetes Current Visit: No Status: Acute Plan to address problem: Continue glyburide 5mg BID. GDM diet.
[2020-04-25 19:00] LABS: Basophils % (Auto) 0.4 % (0.0-1.8); Eosinophils # (Auto) 0.1 K/mm3 (0.0-0.4); Eosinophils % (Auto) 1.4 % (0.0-4.3); Hematocrit 34.8 % (30.3-42.9); Hemoglobin 11.4 gm/dl (10.1-14.3); Lymphocytes # (Auto) 1.7 K/mm3 (1.2-5.4); Lymphocytes % (Auto) 21.1 % (13.4-35.0); Mean Corpuscular HGB Conc 33 % (30-34); Mean Corpuscular Volume 78 fl (79-97); Monocytes # (Auto) 0.8 K/mm3 (0.0-0.8); Monocytes % (Auto) 9.2 % (0.0-7.3); Platelet Count 226 K/mm3 (140-440); Red Blood Count 4.44 M/mm3 (3.65-5.03); Red Cell Distribution Width 15.4 % (13.2-15.2)
--- NOTE | 2020-04-25 19:02 | XRay Report ---
CHEST 2 VIEWS INDICATION / CLINICAL INFORMATION: shortness of breath in . COMPARISON: None available. FINDINGS: SUPPORT DEVICES: None. HEART / MEDIASTINUM: No significant abnormality. LUNGS / PLEURA: Opacity in the left suprahilar region favored to represent a prominent vascular struc ture. No significant pulmonary or pleural abnormality. No pneumothorax or effusion. ADDITIONAL FINDINGS: No significant additional findings. IMPRESSION: 1. No acute findings. 2. Opacity in the left suprahilar region favored to represent a prominent vascular structure. Signer Name: Jitendra Reynaga MD Signed: 04/25/2020 6:58 PM Workstation Name: [id number]
[2020-04-25 19:13] LABS: Alanine Aminotransferase 6 units/L (7-56); Albumin 3.3 g/dL (3.9-5); Blood Urea Nitrogen 4 mg/dL (7-17); Calcium 9.8 mg/dL (8.4-10.2); Hemolysis Index 6
[2020-04-25 19:28] LABS: BUN/Creatinine Ratio 8
[2020-04-25] MEDS ORDERED: HALOPERIDOL 5 MG TAB PO SCH (22:00)
--- NOTE | 2020-04-25 23:34 | Event Note ---
Date: 04/25/20 Labs wnl. Troponin neg. Overall benign CXR. However EKG with sinus tachycardia with T-wave abnormality. Will speak with ER/cardiology regarding EKG. Will consider V/Q scan in AM. Patient informed and expressed understanding. No current complaints.
[2020-04-26] MEDS: ALUM-MAG HYDROXIDE-SIMETHICONE 200-200-20MG/5ML ORAL LIQD 30 ML PO PRN ×2 (01:00→12:19)
--- NOTE | 2020-04-26 07:01 | Progress Note ---
Assessment and Plan - Patient Problems (1) Schizophrenia Current Visit: Yes Status: Acute Plan to address problem: No current issues. Continue home Haldol 5mg QHS. (2) Twin gestation in third trimester Current Visit: Yes Status: Acute Plan to address problem: No current issues. Routine antepartum care. (3) Shortness of breath during Current Visit: Yes Status: Acute Plan to address problem: --Unclear origin, however to persistent SOB and EKG abnormalities (sinus tachycardia with T wave abnormalities). Need to r/o cardiopulmonary and infectious etiology --V/Q scan and Echo ordered to assess for PE --COVID test ordered --Dispo pending improvement of symptoms (4) Gestational diabetes Current Visit: No Status: Acute Plan to address problem: Continue glyburide 5mg BID. GDM diet. Subjective - Subjective Date of service: 04/26/20 Principal diagnosis: SOB in Interval history: 25 yo at 33w4d c/b GDM (on glyburide), Hx PIH in 2018 (on Aspirin), schizophrenia (on Haldol) with di/di twin presenting from [facility] with complaint of SOB x 1-2 days. Mild chest discomfort associated with activity. Denies hx allergies, sick contacts. Denies current chest pain, congestion, loss of taste/smell, N/V, diarrhea. Reports symptoms improved when lying on side. Denies labor complaints or PIH symptoms. Active fetus x 2. Patient with persistent SOB. Plan for further workup today. Objective - Vital Signs Vital Signs: Vital Signs - 12hr 04/25/20 04/25/20 04/25/20 19:36 20:10 20:15 Temperature Pulse Rate 109 H 119 H 111 H Respiratory Rate Blood Pressure 113/79 Blood Pressure [Left] O2 Sat by Pulse 97 100 Oximetry 04/25/20 04/25/20 04/25/20 20:21 20:26 20:31 Temperature Pulse Rate 113 H 105 H 110 H Respiratory Rate Blood Pressure Blood Pressure [Left] O2 Sat by Pulse 100 100 100 Oximetry 04/25/20 04/25/20 04/25/20 20:36 20:40 20:41 Temperature 98.4 F Pulse Rate 107 H 109 H 104 H Respiratory 20 Rate Blood Pressure Blood Pressure 113/79 [Left] O2 Sat by Pulse 100 100 100 Oximetry 04/25/20 04/25/20 04/25/20 20:46 20:51 20:56 Temperature Pulse Rate 104 H 97 H 103 H Respiratory Rate Blood Pressure Blood Pressure [Left] O2 Sat by Pulse 100 98 100 Oximetry 04/25/20 04/25/20 04/25/20 21:01 21:06 21:11 Temperature Pulse Rate 104 H 105 H 109 H Respiratory Rate Blood Pressure Blood Pressure [Left] O2 Sat by Pulse 100 100 100 Oximetry 04/25/20 04/25/20 04/25/20 21:14 21:16 21:21 Temperature Pulse Rate 62 113 H 110 H Respiratory Rate Blood Pressure Blood Pressure [Left] O2 Sat by Pulse 67 L 100 100 Oximetry 04/25/20 04/25/20 04/25/20 21:26 21:31 21:36 Temperature Pulse Rate 135 H 128 H 108 H Respiratory Rate Blood Pressure Blood Pressure [Left] O2 Sat by Pulse 100 100 100 Oximetry 04/25/20 04/25/20 04/25/20 21:41 21:46 21:51 Temperature Pulse Rate 109 H 109 H 110 H Respiratory Rate Blood Pressure Blood Pressure [Left] O2 Sat by Pulse 100 99 99 Oximetry 04/25/20 04/25/20 04/25/20 21:56 22:01 22:26 Temperature Pulse Rate 105 H 102 H 109 H Respiratory Rate Blood Pressure Blood Pressure [Left] O2 Sat by Pulse 100 100 100 Oximetry 04/25/20 04/25/20 04/25/20 22:31 23:00 23:05 Temperature Pulse Rate 109 H 121 H 118 H Respiratory Rate Blood Pressure Blood Pressure [Left] O2 Sat by Pulse 100 100 100 Oximetry 04/25/20 04/25/20 04/25/20 23:10 23:16 23:21 Temperature Pulse Rate 104 H 120 H 125 H Respiratory Rate Blood Pressure Blood Pressure [Left] O2 Sat by Pulse 99 99 99 Oximetry 04/25/20 04/25/20 04/25/20 23:26 23:31 23:36 Temperature Pulse Rate 107 H 123 H 121 H Respiratory Rate Blood Pressure Blood Pressure [Left] O2 Sat by Pulse 99 99 99 Oximetry 04/25/20 04/25/20 04/26/20 23:41 23:58 00:03 Temperature Pulse Rate 111 H 124 H 125 H Respiratory Rate Blood Pressure Blood Pressure [Left] O2 Sat by Pulse 99 98 99 Oximetry 04/26/20 04/26/20 04/26/20 00:06 00:08 00:13 Temperature Pulse Rate 54 L 114 H 125 H Respiratory Rate Blood Pressure Blood Pressure [Left] O2 Sat by Pulse 80 L 100 99 Oximetry 04/26/20 04/26/20 04/26/20 00:18 00:23 00:28 Temperature Pulse Rate 118 H 105 H 124 H Respiratory Rate Blood Pressure Blood Pressure [Left] O2 Sat by Pulse 99 99 100 Oximetry 04/26/20 04/26/20 04/26/20 00:33 00:38 00:43 Temperature Pulse Rate 106 H 124 H 131 H Respiratory Rate Blood Pressure Blood Pressure [Left] O2 Sat by Pulse 100 100 100 Oximetry 04/26/20 04/26/20 04/26/20 00:45 00:46 00:48 Temperature 98.8 F Pulse Rate 115 H 118 H 112 H Respiratory 18 Rate Blood Pressure 113/65 Blood Pressure 113/65 [Left] O2 Sat by Pulse 98 100 Oximetry 04/26/20 04/26/20 04/26/20 00:53 00:58 01:03 Temperature Pulse Rate 97 H 127 H 131 H Respiratory Rate Blood Pressure Blood Pressure [Left] O2 Sat by Pulse 100 100 99 Oximetry 04/26/20 04/26/20 04/26/20 01:16 01:21 01:26 Temperature Pulse Rate 106 H 86 107 H Respiratory Rate Blood Pressure Blood Pressure [Left] O2 Sat by Pulse 99 100 100 Oximetry 04/26/20 04/26/20 04/26/20 01:31 01:36 01:41 Temperature Pulse Rate 104 H 108 H 106 H Respiratory Rate Blood Pressure Blood Pressure [Left] O2 Sat by Pulse 99 99 99 Oximetry 04/26/20 04/26/20 04/26/20 01:46 01:51 01:56 Temperature Pulse Rate 104 H 103 H 109 H Respiratory Rate Blood Pressure Blood Pressure [Left] O2 Sat by Pulse 98 99 99 Oximetry 04/26/20 04/26/20 04/26/20 02:01 02:06 02:11 Temperature Pulse Rate 103 H 106 H 102 H Respiratory Rate Blood Pressure Blood Pressure [Left] O2 Sat by Pulse 98 98 98 Oximetry 04/26/20 04/26/20 04/26/20 02:16 02:21 02:26 Temperature Pulse Rate 109 H 107 H 107 H Respiratory Rate Blood Pressure Blood Pressure [Left] O2 Sat by Pulse 99 98 99 Oximetry 04/26/20 04/26/20 04/26/20 02:31 02:36 02:41 Temperature Pulse Rate 102 H 104 H 131 H Respiratory Rate Blood Pressure Blood Pressure [Left] O2 Sat by Pulse 98 98 98 Oximetry 04/26/20 04/26/20 04/26/20 02:46 02:51 02:56 Temperature Pulse Rate 129 H 119 H 119 H Respiratory Rate Blood Pressure Blood Pressure [Left] O2 Sat by Pulse 99 99 98 Oximetry 04/26/20 04/26/20 04/26/20 03:01 03:06 03:11 Temperature Pulse Rate 125 H 120 H 123 H Respiratory Rate Blood Pressure Blood Pressure [Left] O2 Sat by Pulse 99 98 97 Oximetry 04/26/20 04/26/20 04/26/20 03:16 03:21 03:26 Temperature Pulse Rate 122 H 112 H 109 H Respiratory Rate Blood Pressure Blood Pressure [Left] O2 Sat by Pulse 97 99 98 Oximetry 04/26/20 04/26/20 04/26/20 03:31 03:36 03:41 Temperature Pulse Rate 106 H 109 H 107 H Respiratory Rate Blood Pressure Blood Pressure [Left] O2 Sat by Pulse 98 97 98 Oximetry 04/26/20 04/26/20 04/26/20 03:46 03:51 03:56 Temperature Pulse Rate 108 H 117 H 109 H Respiratory Rate Blood Pressure Blood Pressure [Left] O2 Sat by Pulse 97 98 100 Oximetry 04/26/20 04/26/20 04/26/20 04:01 04:06 04:11 Temperature Pulse Rate 113 H 105 H 113 H Respiratory Rate Blood Pressure Blood Pressure [Left] O2 Sat by Pulse 98 98 98 Oximetry 04/26/20 04/26/20 04/26/20 04:16 04:21 04:26 Temperature Pulse Rate 117 H 106 H 109 H Respiratory Rate Blood Pressure Blood Pressure [Left] O2 Sat by Pulse 100 97 92 Oximetry 04/26/20 04/26/20 04/26/20 04:31 04:36 04:41 Temperature Pulse Rate 121 H 116 H 123 H Respiratory Rate Blood Pressure Blood Pressure [Left] O2 Sat by Pulse 98 95 98 Oximetry 04/26/20 04/26/20 04/26/20 04:46 04:51 04:56 Temperature Pulse Rate 112 H 115 H 107 H Respiratory Rate Blood Pressure Blood Pressure [Left] O2 Sat by Pulse 97 97 97 Oximetry 04/26/20 04/26/20 04/26/20 05:01 05:06 05:11 Temperature Pulse Rate 97 H 111 H 102 H Respiratory Rate Blood Pressure Blood Pressure [Left] O2 Sat by Pulse 96 97 96 Oximetry 04/26/20 04/26/20 04/26/20 05:16 05:21 05:26 Temperature Pulse Rate 107 H 116 H 116 H Respiratory Rate Blood Pressure Blood Pressure [Left] O2 Sat by Pulse 98 98 97 Oximetry 04/26/20 04/26/20 04/26/20 05:32 05:37 05:42 Temperature Pulse Rate 114 H 116 H 119 H Respiratory Rate Blood Pressure Blood Pressure [Left] O2 Sat by Pulse 100 99 99 Oximetry 04/26/20 04/26/20 04/26/20 05:47 05:52 05:57 Temperature Pulse Rate 118 H 105 H 105 H Respiratory Rate Blood Pressure Blood Pressure [Left] O2 Sat by Pulse 99 99 99 Oximetry 04/26/20 04/26/20 04/26/20 06:02 06:03 06:08 Temperature Pulse Rate 117 H 111 H Respiratory Rate Blood Pressure Blood Pressure [Left] O2 Sat by Pulse 89 100 98 Oximetry 04/26/20 04/26/20 04/26/20 06:13 06:18 06:23 Temperature Pulse Rate 109 H 105 H 109 H Respiratory Rate Blood Pressure Blood Pressure [Left] O2 Sat by Pulse 99 98 99 Oximetry 04/26/20 04/26/20 04/26/20 06:28 06:33 06:38 Temperature Pulse Rate 114 H 109 H 110 H Respiratory Rate Blood Pressure Blood Pressure [Left] O2 Sat by Pulse 99 99 98 Oximetry 04/26/20 04/26/20 04/26/20 06:43 06:48 06:53 Temperature Pulse Rate 120 H 114 H 108 H Respiratory Rate Blood Pressure Blood Pressure [Left] O2 Sat by Pulse 99 98 98 Oximetry - Exam Cardiovascular: Other (tachycardiac) Lungs: Clear to auscultation Abdomen: Present: normal appearance, other (gravid) Uterine Contraction Pattern: Absent - Labs Labs: Abnormal Labs 04/25/20 04/25/20 17:49 Unknown MCV 78 L MCH 26 L RDW 15.4 H [place] % (Auto) 9.2 H Sodium 135 L Carbon Dioxide 17 L BUN 4 L Creatinine 0.5 L Glucose 169 H ALT 6 L Alkaline Phosphatase 171 H Albumin 3.3 L Laboratory Results - last 24 hr 04/25/20 04/25/20 04/25/20 17:49 22:34 Unknown WBC 8.2 RBC 4.44 Hgb 11.4 Hct 34.8 MCV 78 L MCH 26 L MCHC 33 RDW 15.4 H Plt Count 226 Lymph % (Auto) 21.1 [place] % (Auto) 9.2 H Eos % (Auto) 1.4 Baso % (Auto) 0.4 Lymph # 1.7 [place] # 0.8 Eos # 0.1 Baso # 0.0 Seg Neutrophils % 67.9 Seg Neutrophils # 5.6 Sodium 135 L Potassium 3.9 Chloride 103.0 Carbon Dioxide 17 L Anion Gap 19 BUN 4 L Creatinine 0.5 L Estimated GFR > 60 BUN/Creatinine Ratio 8 Glucose 169 H POC Glucose 96 Calcium 9.8 Total Bilirubin 0.70 AST 15 ALT 6 L Alkaline Phosphatase 171 H Troponin T Total Protein 6.7 Albumin 3.3 L Albumin/Globulin Ratio 1.0 04/25/20 Unknown WBC RBC Hgb Hct MCV MCH MCHC RDW Plt Count Lymph % (Auto) [place] % (Auto) Eos % (Auto) Baso % (Auto) Lymph # [place] # Eos # Baso # Seg Neutrophils % Seg Neutrophils # Sodium Potassium Chloride Carbon Dioxide Anion Gap BUN Creatinine Estimated GFR BUN/Creatinine Ratio Glucose POC Glucose Calcium Total Bilirubin AST ALT Alkaline Phosphatase Troponin T < 0.010 Total Protein Albumin Albumin/Globulin Ratio
[2020-04-26] MEDS ORDERED: glyBURIDE 5 MG TAB PO SCH (08:00)
--- NOTE | 2020-04-26 08:54 | Consultation ---
History of Present Illness Consult date: 04/26/20 Requesting physician: FRANKLIN MAYEN JR Consult reason: other (abnormal ECG) History of present illness: Pt is a 25 y.o. female, previously unknown to our practice, who is currently in her 3rd trimester (33wk 6d) with twins, G5. Pt presented with complaints of SOB x 3 days. She also reports occasional pain in her calves. Pt denies any additional cardiac complaints. Pt noted to be tachycardic in the 110s prior to exam. Elevated d-dimer upon arrival. V/Q scan revealed intermediate-high probability of PE. Past History Past Medical History: other (schizophrenia) Social history: denies: smoking, alcohol abuse Medications and Allergies Allergies Allergy/AdvReac Type Severity Reaction Status Date / Time No Known Allergies Allergy Verified 09/30/17 14:22 Home Medications Medication Instructions Recorded Confirmed Last Taken Type Haldol 5 mg PO DAILY 04/11/20 04/25/20 04/24/20 21:00 History Aspirin [Aspirin BABY CHEW TAB] 81 mg PO QDAY tab.chew 04/12/20 04/25/20 04/24/20 21:00 Rx glyBURIDE [Diabeta] 2.5 mg PO QHS #30 tablet 04/12/20 04/25/20 04/24/20 21:00 Rx glyBURIDE [Diabeta] 5 mg PO QAM #30 tablet 04/12/20 04/25/20 04/24/20 21:00 Rx haloperidoL [Haldol] 5 mg PO HS tablet 04/12/20 04/25/20 04/24/20 21:00 Rx Active Meds: Active Medications Acetaminophen (Tylenol) 650 mg PO Q4H PRN PRN Reason: Pain MILD(1-3)/Fever >100.5/DIAZ Al Hydrox/Mg Hydrox/Simethicone (Alum-Mag Hydrox-Simeth [phone]/5ml) 30 ml PO Q6H PRN PRN Reason: Indigestion Last Admin: 04/26/20 01:00 Dose: 30 ml Documented by: Diphenhydramine HCl (Benadryl) 25 mg PO Q6H PRN PRN Reason: Itching Docusate Sodium (Colace) 100 mg PO Q12H PRN PRN Reason: Constipation Glyburide (Diabeta) 5 mg PO BIDDIAB [facility] Guaifenesin (Guaifenesin Dm Syrup) 10 ml PO Q6H PRN PRN Reason: Cough Haloperidol (Haldol) 5 mg PO QHS [facility] Last Admin: 04/25/20 22:15 Dose: 5 mg Documented by: Lactated Ringer's (Lactated Ringers) 1,000 mls @ 125 mls/hr IV DIRECT NABIL Magnesium Hydroxide (Milk Of Magnesia) 30 ml PO QHS PRN PRN Reason: Laxative Effect Multivitamins/Iron/Calcium ( Vitamin) 1 each PO QDAY [facility] Ondansetron HCl (Zofran) 4 mg IV Q6H PRN PRN Reason: Nausea And Vomiting Pseudoephedrine HCl (Sudafed) 30 mg PO Q4H PRN PRN Reason: Nasal Congestion Senna/Docusate Sodium (Senokot S) 2 tab PO Q12H PRN PRN Reason: Laxative Effect Simethicone (Mylicon) 80 mg PO Q6H PRN PRN Reason: Gas pain Sodium Chloride (Deep Sea) 2 spray NS Q4H PRN PRN Reason: Congestion Witch Radha/Glycerin (Tucks Pad) 1 each TP PRN PRN PRN Reason: Hemorrhoids Review of Systems Constitutional: no fever, no chills, no sweats Ears, nose, mouth and throat: no nasal congestion, no sore throat Cardiovascular: shortness of breath, claudication, no chest pain, no orthopnea, no palpitations, no edema, no syncope, no lightheadedness, no dyspnea on ex ertion, no paroxysmal nocturnal dyspnea Respiratory: shortness of breath, no cough, no dyspnea on exertion Gastrointestinal: no abdominal pain, no nausea, no vomiting, no diarrhea, no constipation Genitourinary Female: no pelvic pain, no flank pain, no dysuria Musculoskeletal: no neck stiffness, no neck pain, no myalgias Integumentary: no rash, no wounds Neurological: no head injury, no paralysis, no weakness, no parathesias, no numbness, no tingling, no seizures, no syncope, no vertigo, no headaches Endocrine: no cold intolerance, no heat intolerance, no polydipsia, no polyuria Hematologic/Lymphatic: no easy bruising, no easy bleeding Allergic/Immunologic: no urticaria Physical Examination Last Vital Signs Temp 98.1 F 04/26/20 15:30 Pulse 88 04/26/20 15:30 Resp 20 04/26/20 15:30 BP 106/63 04/26/20 15:30 Pulse Ox 98 04/26/20 15:30 General appearance: no acute distress HEENT: Positive: EOMI, Normocephaly, Mucus Membranes Moist Neck: Positive: neck supple, trachea midline. Negative: JVD/HJR Cardiac: Positive: Reg Rate and Rhythm, S1/S2, Tachycardia Lungs: Positive: clear to auscultation (bilaterally) Neuro: Positive: Grossly Intact Abdomen: Positive: Soft, Active Bowel Sounds. Negative: Tender Skin: Negative: Rash Musculoskeletal: No Fluid Collection, No Pain, Normal Range of Motion Extremities: Present: upper extr. pulses, lower extr. pulses. Absent: edema Results 04/26/20 13:50 04/25/20 Unknown Cardiac Enzymes 04/25/20 Range/Units Unknown AST 15 (5-40) units/L CBC 04/25/20 Range/Units 17:49 WBC 8.2 (4.5-11.0) K/mm3 RBC 4.44 (3.65-5.03) M/mm3 Hgb 11.4 (10.1-14.3) gm/dl Hct 34.8 (30.3-42.9) % Plt Count 226 (140-440) K/mm3 Lymph # 1.7 (1.2-5.4) K/mm3 [place] # 0.8 (0.0-0.8) K/mm3 Eos # 0.1 (0.0-0.4) K/mm3 Baso # 0.0 (0.0-0.1) K/mm3 Comprehensive Metabolic Panel 04/25/20 Range/Units Unknown Sodium 135 L (137-145) mmol/L Potassium 3.9 (3.6-5.0) mmol/L Chloride 103.0 (98-107) mmol/L Carbon Dioxide 17 L (22-30) mmol/L BUN 4 L (7-17) mg/dL Creatinine 0.5 L (0.6-1.2) mg/dL Glucose 169 H (65-100) mg/dL Calcium 9.8 (8.4-10.2) mg/dL AST 15 (5-40) units/L ALT 6 L (7-56) units/L Alkaline Phosphatase 171 H (35-129) units/L Total Protein 6.7 (6.3-8.2) g/dL Albumin 3.3 L (3.9-5) g/dL - Imaging and Cardiology Echo: pending EKG: report reviewed, image reviewed - EKG Interpretation EKG: no acute changes EKG interpretations - Telemetry EKG Rhythm: Sinus Tachycardia - EKG Sinus rhythms and dysrhythmias: sinus tachycardia Assessment and Plan Obtain echo. Initiate heparin drip. Continue other present mgmt. Pt seen in conjunction with Dr. RAFIQ Cates, who agrees with assessment and plan of care. - Patient Problems (1) Acute pulmonary embolism Current Visit: Yes Status: Suspected (2) Twin gestation in third trimester Current Visit: Yes Status: Acute (3) Gestational diabetes Current Visit: Yes Status: Chronic (4) Obesity Current Visit: Yes Status: Chronic (5) Schizophrenia Current Visit: No Status: Chronic
[2020-04-26] MEDS ORDERED: PRENATAL VIT27-FE FUMARATE-FOLIC ACID VIT TAB PO SCH (10:00)
--- NOTE | 2020-04-26 10:48 | Nuclear Medicine Report ---
NUCLEAR MEDICINE PERFUSION LUNG SCAN INDICATION: shortness of breath in with abnl T waves. TECHNIQUE: 2.2 mCi of Tc-99m MAA were given by IV. COMPARISON: Chest radiograph dated 04/25/2020. FINDINGS: PERFUSION: Moderate sized perfusion defect left upper lobe with vertical elongated opacity seen on 's chest x-ray possibly secondary to vascular structure ADDITIONAL FINDINGS: None. IMPRESSION: 1. Intermediate to high probability for pulmonary embolism. CTA chest or lower extremity duplex venou s ultrasound may be confirmatory as warranted clinically. CRITICAL RESULT: Time of Discovery: 9:40 AM central time 04/26/2020 Time of Communication: 942:00 AM Licensed Practitioner Receiving Report: Nurse Shepard Read Back Performed: Yes. Signer Name: Harjinder Pham MD Signed: 04/26/2020 10:43 AM Workstation Name: [id number]
--- NOTE | 2020-04-26 11:18 | Event Note ---
Date: 04/26/20 V/Q scan concerning for intermediate to high risk for risk of PE. Will obtain bilateral dopplers per radiology recommendation given . Consult Heme regarding recs. Will start LMW Heparin mg/kg BID.
[2020-04-26] MEDS ORDERED: ENOXAPARIN 120 MG/0.8 ML INJ SUB-Q SCH (12:00)
[2020-04-26] MEDS ORDERED: HEPARIN/ 0.45% NACL DRIP 25,000 UNIT/500 ML BAG IV SCH (13:00)
--- NOTE | 2020-04-26 13:19 | Vascular Lab Report ---
DUPLEX DOPPLER LOWER EXTREMITY VEINS, BILATERAL INDICATION / CLINICAL INFORMATION: likely PE via V/Q scan in pregnan, confirming clot. TECHNIQUE: Duplex doppler imaging was performed through the veins of both lower extremities using venous val db and other maneuvers. COMPARISON: None available. FINDINGS: RIGHT COMMON FEMORAL VEIN: Negative. RIGHT FEMORAL VEIN: Negative. RIGHT POPLITEAL VEIN: Negative. RIGHT CALF VEINS: Negative. LEFT COMMON FEMORAL VEIN: Negative. LEFT FEMORAL VEIN: Negative. LEFT POPLITEAL VEIN: Negative. LEFT CALF VEINS: Negative. ADDITIONAL FINDINGS: None. IMPRESSION: 1. No sonographic evidence for DVT in either lower extremity. Signer Name: Harjinder Pham MD Signed: 04/26/2020 1:13 PM Workstation Name: [id number]
[2020-04-26] MEDS ORDERED: DOCUSATE SODIUM 100 MG CAP PO PRN (13:23)
[2020-04-26] MEDS ORDERED: ACETAMINOPHEN 325 MG TAB PO PRN (13:23)
--- NOTE | 2020-04-26 13:56 | Consultation ---
History of Present Illness - Reason for Consult Consult date: 04/26/20 SOB - History of Present Illness 25 yo at 33w6d c/b GDM (on glyburide), Hx PIH in 2018 (on Aspirin), schizophrenia (on Haldol) with di/di twin presenting from [facility] clinic with complaint of SOB x 1-2 days and mild chest discomfort associated with activity. VQ scan performed today showed high to intermediate probability for acute PE. Patient has been started on therapeutic dose of heparin drip and medicine servic e has been consulted for further evaluation and management. Patient denies chest pain, nausea, vomiting. Past History Past Medical History: other (GDM, Schizophrenia, obesity (class III), h/o pre-E. 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 (leg surgery) [employer] History: abnormal PAP smear Family/Genetic History: diabetes, hypertension Social history: no significant social history Review of System: Constitutional: no fever, no chills, no weight loss Ears, eyes, nose, mouth and throat: no nasal congestion, no nasal discharge, no sinus pressure, no vision change, no red eye. Neck: No neck pain or rigidity. Cardiovascular: No chest pain, no orthopnea, no palpitations, no leg swelling Respiratory: + shortness of breath, no cough, no congestion, no wheezing Gastrointestinal: no abdominal pain, no nausea, no vomiting Genitourinary : no dysuria, no hematuria Musculoskeletal: no joint swelling or muscle ache Integumentary: no rash, no pruritis Neurological: no parathesias, no numbness, no tingling Endocrine: no cold or heat intolerance, no polyuria or polydipsia Hematologic/Lymphatic: no easy bruising, no easy bleeding, no gland swelling Allergic/Immunologic: no urticaria, no angioedema. Past History Social history: no significant social history Medications and Allergies Allergies Allergy/AdvReac Type Severity Reaction Status Date / Time No Known Allergies Allergy Verified 09/30/17 14:22 Home Medications Medication Instructions Recorded Confirmed Last Taken Type Haldol 5 mg PO DAILY 04/11/20 04/25/20 04/24/20 21:00 History Aspirin [Aspirin BABY CHEW TAB] 81 mg PO QDAY tab.chew 04/12/20 04/25/20 04/24/20 21:00 Rx glyBURIDE [Diabeta] 2.5 mg PO QHS #30 tablet 04/12/20 04/25/20 04/24/20 21:00 Rx glyBURIDE [Diabeta] 5 mg PO QAM #30 tablet 04/12/20 04/25/20 04/24/20 21:00 Rx haloperidoL [Haldol] 5 mg PO HS tablet 04/12/20 04/25/20 04/24/20 21:00 Rx Active Meds: Active Medications Acetaminophen (Tylenol) 650 mg PO Q4H PRN PRN Reason: Pain MILD(1-3)/Fever >100.5/DIAZ Al Hydrox/Mg Hydrox/Simethicone (Alum-Mag Hydrox-Simeth [phone]/5ml) 30 ml PO Q6H PRN PRN Reason: Indigestion Last Admin: 04/26/20 12:19 Dose: 30 ml Documented by: Diphenhydramine HCl (Benadryl) 25 mg PO Q6H PRN PRN Reason: Itching Docusate Sodium (Colace) 100 mg PO Q12H PRN PRN Reason: Constipation Glyburide (Diabeta) 5 mg PO BIDDIAB NABIL Guaifenesin (Guaifenesin Dm Syrup) 10 ml PO Q6H PRN PRN Reason: Cough Haloperidol (Haldol) 5 mg PO DAILY NABIL Lactated Ringer's (Lactated Ringers) 1,000 mls @ 125 mls/hr IV DIRECT NABIL Heparin Sodium/Sodium Chloride (Heparin/ 0.45% Nacl-25,000 Unit/500 Ml) 25,000 unit in 500 mls @ 30 mls/hr IV TITR NABIL; Protocol Multivitamins/Iron/Calcium ( Vitamin) 1 each PO QDAY NABIL Pseudoephedrine HCl (Sudafed) 30 mg PO Q4H PRN PRN Reason: Nasal Congestion Simethicone (Mylicon) 80 mg PO Q6H PRN PRN Reason: Gas pain Sodium Chloride (Deep Sea) 2 spray NS Q4H PRN PRN Reason: Congestion Witch Radha/Glycerin (Tucks Pad) 1 each TP PRN PRN PRN Reason: Hemorrhoids Exam - Physical Exam Narrative exam: GENERAL: well-developed and well-nourished lying on bed appeared to be in no discomfort. HEENT: Normocephalic. Atraumatic. No conjunctival congestion or icterus. Patient has moist mucous membranes. NECK: Supple. Trachea midline. CHEST/LUNGS: Clear to auscultated bilaterally, breathing nonlabored. No wheezes crackles or rhonchi. HEART/CARDIOVASCULAR: Regular in rate and rhythm. S1 and S2 positive. ABDOMEN: Abdomen is soft, nontender. Patient has normal bowel sounds. SKIN: There is no rash. Warm and dry. NEURO: No focal motor deficit. Follows command. MUSCULOSKELETAL: No joint effusion or tenderness. EXTRIMITY: No edema, no cyanosis or clubbing. PSYCH: Cooperative. - Constitutional Vitals: Temp Pulse Resp BP Pulse Ox 98.6 F 110 H 18 126/79 100 04/26/20 12:20 04/26/20 12:22 04/26/20 12:20 04/26/20 12:21 04/26/20 12:22 HEART Score - HEART Score Troponin: Troponin T < 0.010 ng/mL (0.00-0.029) 04/25/20 Unknown Results - Labs CBC & Chem 7: 04/26/20 13:50 04/25/20 Unknown Labs: Abnormal lab results 04/25/20 04/25/20 Range/Units 17:49 Unknown MCV 78 L (79-97) fl MCH 26 L (28-32) pg RDW 15.4 H (13.2-15.2) % Collier % (Auto) 9.2 H (0.0-7.3) % Sodium 135 L (137-145) mmol/L Carbon Dioxide 17 L (22-30) mmol/L BUN 4 L (7-17) mg/dL Creatinine 0.5 L (0.6-1.2) mg/dL Glucose 169 H (65-100) mg/dL ALT 6 L (7-56) units/L Alkaline Phosphatase 171 H (35-129) units/L Albumin 3.3 L (3.9-5) g/dL - Imaging and Cardiology Chest x-ray: report reviewed Venous US: report reviewed Assessment and Plan Possible acute PE -Continue heparin drip for now -Continue breathing treatment as needed -Monitor H&H -Lower extremity Doppler has been negative Gestational diabetes, sliding scale of insulin as needed QA [facility] History of schizophrenia, no acute psychosis -Continue home medications if safe to use during -we will defer to primary -If needed can consider psych consult Morbid obesity, dietary recommendation DVT prophylaxis, continue heparin drip
[2020-04-26 14:08] LABS: Hematocrit 32.4 % (30.3-42.9); Hemoglobin 10.5 gm/dl (10.1-14.3)
[2020-04-26 14:18] LABS: INR 0.99 (0.87-1.13)
[2020-04-26] MEDS: glyBURIDE 5 MG TAB PO SCH (17:21)
[2020-04-26] MEDS: HALOPERIDOL 5 MG TAB PO SCH (21:21)
--- NOTE | 2020-04-26 21:47 | Consultation ---
History of Present Illness Consult date: 04/26/20 Requesting physician: KIRA DE LA ROSA Reason for consult: other (pulmonary embolism) History of present illness: Thank you for your recent consultation regarding the above named patient. As you are aware, she is a 25 year old para 3105 with a twin gestation at 33 weeks 5 days based on an LAWANDA of 06/09/20. Patient presented to [facility] on 04/25/20 complaining of 1-2 days of shortness of breath. She was sent to [facility] and was subsequently noted to have a acute pulmonary embolism. Patient was started on Heparin. COURSE: History of morbid obesity, gestational diabetes, previous history of schizophrenia. Most recent ultrasound (on 04/25/20) showed Twin A: BPP: 04/05. Twin B: 04/05 PAST OB HISTORY: See notes in hospital chart. PAST MEDICAL HISTORY: See notes in hospital chart. PAST SURGICAL HISTORY: Negative . PHYSICAL EXAM: On examination the patients breathing has improved. Heart rate in 100 to 110 bpm. Patient has had episodes of sinus tachycardia but currently doing better. LABORATORY TESTS: HGB: 10.5 HCT: 32.4 PLT: 219 GLU:169 ALT: 6 Create: 0.5 BUN: 4 EKG: Sinus tachycardia, Borderline T abnormalities. Nuclear Medicine: Intermediate to high probability pulmonary embolism. Past History Past Medical History: other (GDM, Schizophrenia, obesity (class III), h/o pre-E. 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 (leg surgery) [employer] History: abnormal PAP smear Family/Genetic History: diabetes, hypertension - Obstetrical History : 5 Medications and Allergies Allergies Allergy/AdvReac Type Severity Reaction Status Date / Time No Known Allergies Allergy Verified 09/30/17 14:22 Home Medications Medication Instructions Recorded Confirmed Last Taken Type Haldol 5 mg PO DAILY 04/11/20 04/25/20 04/24/20 21:00 History Aspirin [Aspirin BABY CHEW TAB] 81 mg PO QDAY tab.chew 04/12/20 04/25/20 04/24/20 21:00 Rx glyBURIDE [Diabeta] 2.5 mg PO QHS #30 tablet 04/12/20 04/25/20 04/24/20 21:00 Rx glyBURIDE [Diabeta] 5 mg PO QAM #30 tablet 04/12/20 04/25/20 04/24/20 21:00 Rx haloperidoL [Haldol] 5 mg PO HS tablet 04/12/20 04/25/20 04/24/20 21:00 Rx Active Meds: Active Medications Acetaminophen (Tylenol) 650 mg PO Q4H PRN PRN Reason: Pain MILD(1-3)/Fever >100.5/DIAZ Docusate Sodium (Colace) 100 mg PO Q12H PRN PRN Reason: Constipation Glyburide (Diabeta) 5 mg PO BIDDIAB [facility] Last Admin: 04/26/20 17:21 Dose: 5 mg Documented by: Haloperidol (Haldol) 5 mg PO DAILY [facility] Last Admin: 04/26/20 21:21 Dose: 5 mg Documented by: Multivitamins/Iron/Calcium ( Vitamin) 1 each PO QDAY [facility] - Vital Signs Vital signs: Vital Signs Temp Pulse Resp BP 98.7 F 137 H 16 113/72 04/25/20 17:23 04/25/20 17:23 04/25/20 17:23 04/25/20 17:23 Temp Pulse Resp BP Pulse Ox 98.1 F 88 20 106/63 98 04/26/20 15:30 04/26/20 15:30 04/26/20 15:30 04/26/20 15:30 04/26/20 15:30 Results Result Diagrams: 04/26/20 13:50 04/25/20 Unknown Abnormal lab results 04/26/20 04/26/20 Range/Units 14:20 21:14 Heparin Anti-Xa Level 0.72 H (0.3-0.7) U.I./ml POC Glucose 128 H (70-105) All other labs normal. Assessment and Plan ASSESSMENT: Twin gestation at 33 weeks 5 days. Possible pulmonary embolism. Currently on Heparin Gestational diabetes. History of Schizophrenia Negative Lower extremity Doppler. SUGGESTED MANAGEMENT PLAN 1. Agree with current management. 2. Continue heparin drip 3. Breathing treatment as needed 4. Monitor H&H 5. Sliding scale for GDM 6. History of psychosis; consider psych consult if necessary, 7. Expectant management. MANAGEMENT OF LABOR AND DELIERY. 8. Treatment with subcutaneous LMWH should be discontinued at least 24 hours prior to delivery if the delivery time is predictable (eg, induction of labor, planned section). 9. This allows the effect of heparin to resolve, which is particularly important for patients who desire neuraxial anesthesia because anticoagulation during insertion (or removal) of a neuraxial anesthesia catheter increases the risk for spinal hematoma. 10. Since a period of period of 24 to 36 hours without anticoagulant therapy may be undesirable in women who developed within the past month; Such patients may benefit from having their subcutaneous LMWH or subcutaneous UFH switched to IV UFH, which can be discontinued 4 to 6 hours prior to delivery (REFERENCE 1) 11. A neuraxial catheter may be placed when the aPTT has returned to normal [12]. 12. In rare conditions where it may be unwilling to tolerate even a short interval without anticoagulant therapy in rare circumstances, such as a patient with reduced cardiopulmonary reserve and a recent PE. A temporary inferior vena cava (IVC) filter can be inserted in this situation, or delivery can proceed despite full anticoagulation (REFERENCE 2) 13. Awaiting results of occult blood for testing as recommended. 14. APA to follow while hospitalized. Thank you for allowing us to participate in the care of this patient. We look forward to the opportunity to assist in her continued management. If you have any questions, we may be reached at [phone]. Yris Reed M.D. REFERENCE 1: VTE, thrombophilia, antithrombotic therapy, and : Antithrombotic Therapy and Prevention of Thrombosis, 9th ed: [employer] Evidence-Based Clinical Practice Guidelines.AU Litzy SM, Aleman IA, Ameliadorp S, Verd DL, Prabulos AM, Radhak PO, [employer] SO Chest. 2012;141(2 Suppl):e691S. REFERENCE 2: [id number] heparin during and delivery: preliminary experience with 41 pregnancies. AU Vijay Hector, Ariel R, Tina P, Schuyler Hector, Migue A, Daysi E SO Obstet Gynecol. 1996;87(3):380
[2020-04-27] MEDS: HEPARIN/ 0.45% NACL DRIP 25,000 UNIT/500 ML BAG IV SCH ×3 (02:28→19:48)
[2020-04-27 04:30] LABS: Hematocrit 30.8 % (30.3-42.9); Hemoglobin 10.1 gm/dl (10.1-14.3)
[2020-04-27 04:44] LABS: INR 1.03 (0.87-1.13)
[2020-04-27 04:45] LABS: Partial Thromboplastin Time 38.3 Sec. (24.2-36.6)
--- NOTE | 2020-04-27 08:38 | Progress Note ---
Assessment and Plan Assessment and plan: 25 yo at 33w6d c/b GDM (on glyburide), Hx PIH in 2018 (on Aspirin), schizophrenia (on Haldol) with di/di twin presenting from [facility] clinic with complaint of SOB x 1-2 days and mild chest discomfort associated with activity. VQ scan performed today showed high to intermediate probability for acute PE. Patient has been started on therapeutic dose of heparin drip and medicine service has been consulted for further evaluation and management. Patient denies chest pain, nausea, vomiting. Possible acute PE -Continue heparin drip for now- - Obtain Pulmonary consult - If respiratory status improves, patient will be medically cleared for discharge on Enoxaparin -Continue breathing treatment as needed -Monitor H&H -Lower extremity Doppler has been negative - Check Doppler lower ext Gestational diabetes, sliding scale of insulin as needed QA [facility] History of schizophrenia, no acute psychosis -Continue home medications if safe to use during -we will defer to primary -If needed can consider psych consult Morbid obesity, dietary recommendation 33 WK 6 D IUP DVT prophylaxis, continue heparin drip History Interval history: Patient seen and examined clinically stable no new complaints at this time. Reports improvement in her respiratory status. Hospitalist Physical - Physical exam Narrative exam: VITAL SIGNS: Reviewed. GENERAL: The patient appears normally developed, Vital signs as documented. HEAD: No signs of head trauma. EYES: Pupils are equal. Extraocular motions intact. EARS: Hearing grossly intact. MOUTH: Oropharynx is normal. NECK: No adenopathy, no JVD. CHEST: Chest with clear breath sounds bilaterally. No wheezes, rales, or rhonchi. CARDIAC: Regular rate and rhythm. S1 and S2, without murmurs, gallops, or rubs. VASCULAR: No Edema. Peripheral pulses normal and equal in all extremities. ABDOMEN: Soft, non tender and non distended. GravidUS no rebound or guarding, and no masses palpated. Bowel Sounds normal. MUSCULOSKELETAL: Good range of motion of all major joints. Extremities without clubbing, cyanosis or edema. NEUROLOGIC EXAM: Alert and oriented x 3 No focal sensory or strength deficits. Speech normal. Follows commands. PSYCHIATRIC: Mood normal. SKIN: detail exam as documented in skin assessment - Constitutional Vitals: Temp Pulse Resp BP Pulse Ox 97.9 F 98 H 18 95/39 97 04/27/20 04:37 04/27/20 04:37 04/27/20 04:37 04/27/20 04:37 04/27/20 04:37 General appearance: Present: no acute distress HEART Score - HEART Score Troponin: Troponin T < 0.010 ng/mL (0.00-0.029) 04/25/20 Unknown Results - Labs CBC & Chem 7: 04/27/20 03:57 04/25/20 Unknown Labs: Laboratory Last Values WBC 8.2 K/mm3 (4.5-11.0) 04/25/20 17:49 RBC 4.44 M/mm3 (3.65-5.03) 04/25/20 17:49 Hgb 10.1 gm/dl (10.1-14.3) 04/27/20 03:57 Hct 30.8 % (30.3-42.9) 04/27/20 03:57 MCV 78 fl (79-97) L 04/25/20 17:49 MCH 26 pg (28-32) L 04/25/20 17:49 MCHC 33 % (30-34) 04/25/20 17:49 RDW 15.4 % (13.2-15.2) H 04/25/20 17:49 Plt Count 207 K/mm3 (140-440) 04/27/20 03:57 Lymph % (Auto) 21.1 % (13.4-35.0) 04/25/20 17:49 Ogle % (Auto) 9.2 % (0.0-7.3) H 04/25/20 17:49 Eos % (Auto) 1.4 % (0.0-4.3) 04/25/20 17:49 Baso % (Auto) 0.4 % (0.0-1.8) 04/25/20 17:49 Lymph # 1.7 K/mm3 (1.2-5.4) 04/25/20 17:49 Ogle # 0.8 K/mm3 (0.0-0.8) 04/25/20 17:49 Eos # 0.1 K/mm3 (0.0-0.4) 04/25/20 17:49 Baso # 0.0 K/mm3 (0.0-0.1) 04/25/20 17:49 Seg Neutrophils % 67.9 % (40.0-70.0) 04/25/20 17:49 Seg Neutrophils # 5.6 K/mm3 (1.8-7.7) 04/25/20 17:49 PT 13.6 Sec. (12.2-14.9) 04/27/20 03:57 INR 1.03 (0.87-1.13) 04/27/20 03:57 APTT 38.3 Sec. (24.2-36.6) H 04/27/20 03:57 Heparin Anti-Xa Level 0.72 U.I./ml (0.3-0.7) H 04/26/20 21:14 Sodium 135 mmol/L (137-145) L 04/25/20 Unknown Potassium 3.9 mmol/L (3.6-5.0) 04/25/20 Unknown Chloride 103.0 mmol/L (98-107) 04/25/20 Unknown Carbon Dioxide 17 mmol/L (22-30) L 04/25/20 Unknown Anion Gap 19 mmol/L 04/25/20 Unknown BUN 4 mg/dL (7-17) L 04/25/20 Unknown Creatinine 0.5 mg/dL (0.6-1.2) L 04/25/20 Unknown Estimated GFR > 60 ml/min 04/25/20 Unknown BUN/Creatinine Ratio 8 % 04/25/20 Unknown Glucose 169 mg/dL (65-100) H 04/25/20 Unknown POC Glucose 113 (70-105) H 04/27/20 06:44 Calcium 9.8 mg/dL (8.4-10.2) 04/25/20 Unknown Total Bilirubin 0.70 mg/dL (0.1-1.2) 04/25/20 Unknown AST 15 units/L (5-40) 04/25/20 Unknown ALT 6 units/L (7-56) L 04/25/20 Unknown Alkaline Phosphatase 171 units/L (35-129) H 04/25/20 Unknown Troponin T < 0.010 ng/mL (0.00-0.029) 04/25/20 Unknown Total Protein 6.7 g/dL (6.3-8.2) 04/25/20 Unknown Albumin 3.3 g/dL (3.9-5) L 04/25/20 Unknown Albumin/Globulin Ratio 1.0 % 04/25/20 Unknown Coronavirus (PCR) Negative (Negative) 04/26/20 Unknown Blood Type O POSITIVE 04/26/20 16:29 Antibody Screen Negative 04/26/20 16:29 Guerrero/IV: IV Catheter Type [Left Hand] INT / Saline Lock Active Medications - Current Medications Current Medications: Generic Name Dose Route Start Last Admin Trade Name Freq PRN Reason Stop Dose Admin Acetaminophen 650 mg 04/26/20 13:23 Tylenol PO Q4H PRN Pain MILD(1-3)/Fever >100.5/DIAZ Docusate Sodium 100 mg 04/26/20 13:23 Colace PO Q12H PRN Constipation Glyburide 5 mg 04/26/20 17:00 04/26/20 17:21 Diabeta PO 5 mg BIDDIAB NABIL Administration Haloperidol 5 mg 04/26/20 22:00 04/26/20 21:21 Haldol PO 5 mg DAILY NABIL Administration Heparin Sodium/Sodium Chloride 25,000 unit in 500 mls @ 30 mls/hr 04/27/20 03:00 04/27/20 02:30 Heparin/ 0.45% Nacl-25,000 Unit/500 Ml IV 1,400 units/hr TITR NABIL 28 mls/hr Titration Protocol 1,500 UNITS/HR Insulin Human Regular 0 unit 04/27/20 07:30 Humulin R SUB-Q ACHS NABIL Protocol Multivitamins/Iron/Calcium 1 each 04/27/20 10:00 Vitamin PO QDAY [facility]
[2020-04-27] MEDS: HALOPERIDOL 5 MG TAB PO SCH ×2 (09:59→10:47)
[2020-04-27] MEDS: glyBURIDE 5 MG TAB PO SCH ×2 (09:59→17:30)
[2020-04-27] MEDS: INSULIN REGULAR, HUMAN 100 UNIT/ML 3ML VIAL SUB-Q SCH ×4 (10:33→22:45)
[2020-04-27] MEDS: PRENATAL VIT27-FE FUMARATE-FOLIC ACID VIT TAB PO SCH (12:09)
--- NOTE | 2020-04-27 17:32 | Progress Note ---
<LUIS FULTON - Last Filed: 04/27/20 17:34> Assessment and Plan BLE venous Dopplers neg for acute DVT. Obtain echo. Continue heparin drip for now - will transition to Enoxaparin when clinically stable. Pulm consulted. Pt seen in conjunction with Dr. RAFIQ Helms, who agrees with assessment and plan of care. - Patient Problems (1) Acute pulmonary embolism Current Visit: Yes Status: Suspected (2) Twin gestation in third trimester Current Visit: Yes Status: Acute (3) Gestational diabetes Current Visit: Yes Status: Chronic (4) Obesity Current Visit: Yes Status: Chronic (5) Schizophrenia Current Visit: No Status: Chronic Subjective Date of service: 04/27/20 Principal diagnosis: ?Acute PE Interval history: Pt resting comfortably in bed upon exam. Mild improvement in SOB. No additional cardiac complaints. Tele reviewed - NSR/ST 90-110s w/no acute events noted. Objective Last Vital Signs Temp 97.9 F 04/27/20 04:37 Pulse 86 04/27/20 10:30 Resp 21 04/27/20 10:30 BP 95/39 04/27/20 04:37 Pulse Ox 99 04/27/20 10:30 - Physical Examination General: No Apparent Distress HEENT: Positive: EOMI, Normocephaly, Mucus Membranes Moist Neck: Positive: neck supple, trachea midline. Negative: JVD/HJR Cardiac: Positive: S1/S2, Tachycardia. Negative: Audible Murmur Lungs: Positive: clear to auscultation (bilaterally) Neuro: Positive: Grossly Intact Abdomen: Positive: Soft, Active Bowel Sounds. Negative: Tender Skin: Negative: Rash Musculoskeletal: No Fluid Collection, No Pain, Normal Range of Motion Extremities: Present: upper extr. pulses, lower extr. pulses. Absent: edema - Labs and Meds Coagulation 04/27/20 Range/Units 03:57 PT 13.6 (12.2-14.9) Sec. INR 1.03 (0.87-1.13) APTT 38.3 H (24.2-36.6) Sec. CBC 04/27/20 Range/Units 03:57 Hgb 10.1 (10.1-14.3) gm/dl Hct 30.8 (30.3-42.9) % Plt Count 207 (140-440) K/mm3 - Imaging and Cardiology EKG: report reviewed, image reviewed Echo: pending - Telemetry EKG Rhythm: Sinus Tachycardia - EKG Sinus rhythms and dysrhythmias: sinus tachycardia <NIDIA HELMS - Last Filed: 04/27/20 17:46> Objective Vital Signs Temp Pulse Pulse Pulse Resp BP Pulse Ox 04/27/20 10:30 86 86 21 99 04/27/20 10:00 99 04/27/20 04:37 97.9 F 98 H 18 95/39 97 04/27/20 01:24 97 04/26/20 21:05 97.5 F L 113 H 16 102/64 99 - Labs and Meds Coagulation 04/27/20 Range/Units 03:57 PT 13.6 (12.2-14.9) Sec. INR 1.03 (0.87-1.13) APTT 38.3 H (24.2-36.6) Sec. CBC 04/27/20 Range/Units 03:57 Hgb 10.1 (10.1-14.3) gm/dl Hct 30.8 (30.3-42.9) % Plt Count 207 (140-440) K/mm3
--- NOTE | 2020-04-27 20:19 | Progress Note ---
Assessment and Plan - Patient Problems (1) Schizophrenia Current Visit: No Status: Chronic Plan to address problem: No current issues. Continue home Haldol 5mg QHS. (2) Twin gestation in third trimester Current Visit: Yes Status: Acute Plan to address problem: No current issues. Routine antepartum care. (3) Shortness of breath during Current Visit: Yes Status: Acute Plan to address problem: --Concern for acute PE given VQ scan on heparin drip. --Care per cardiology consult. --On Tele (4) Gestational diabetes Current Visit: Yes Status: Chronic Plan to address problem: SSI per protocol Consistent carb diet Subjective - Subjective Date of service: 04/27/20 Principal diagnosis: ?Acute PE Interval history: 25 yo at 33w4d c/b GDM (on glyburide), Hx PIH in 2018 (on Aspirin), schizophrenia (on Haldol) with di/di twin presenting from [facility] clinic with complaint of SOB x 1-2 days. VQ finding concerning for acute PE. Cardiology managing heparin drip. No labor complaints. Active fetus x 2 No PIH symptoms. Objective - Vital Signs Vital Signs: Vital Signs - 12hr 04/27/20 04/27/20 04/27/20 10:00 10:30 10:43 Temperature Pulse Rate 111 H Pulse Rate [ 86 Left Radial] Pulse Rate [ 86 Right Radial] Respiratory 21 Rate Blood Pressure 105/61 O2 Sat by Pulse 99 99 96 Oximetry 04/27/20 04/27/20 16:37 19:35 Temperature 98.2 F 98.3 F Pulse Rate 106 H 110 H Pulse Rate [ Left Radial] Pulse Rate [ Right Radial] Respiratory 18 18 Rate Blood Pressure 101/63 102/45 O2 Sat by Pulse 99 97 Oximetry - Exam Abdomen: Present: normal appearance, other (gravid) - Labs Labs: Abnormal Labs 04/25/20 04/25/20 04/26/20 17:49 Unknown 14:20 MCV 78 L MCH 26 L RDW 15.4 H [place] % (Auto) 9.2 H APTT Heparin Anti-Xa Level Sodium 135 L Carbon Dioxide 17 L BUN 4 L Creatinine 0.5 L Glucose 169 H POC Glucose 128 H ALT 6 L Alkaline Phosphatase 171 H Albumin 3.3 L 04/26/20 04/26/20 04/27/20 21:14 21:24 03:57 MCV MCH RDW [place] % (Auto) APTT 38.3 H Heparin Anti-Xa Level 0.72 H Sodium Carbon Dioxide BUN Creatinine Glucose POC Glucose 187 H ALT Alkaline Phosphatase Albumin 04/27/20 04/27/20 04/27/20 06:44 10:27 12:00 MCV MCH RDW [place] % (Auto) APTT Heparin Anti-Xa Level 0.29 L Sodium Carbon Dioxide BUN Creatinine Glucose POC Glucose 113 H 136 H ALT Alkaline Phosphatase Albumin 04/27/20 04/27/20 16:53 18:09 MCV MCH RDW [place] % (Auto) APTT Heparin Anti-Xa Level 0.27 L Sodium Carbon Dioxide BUN Creatinine Glucose POC Glucose 137 H ALT Alkaline Phosphatase Albumin Laboratory Results - last 24 hr 04/26/20 04/26/20 04/26/20 14:20 21:14 21:24 Hgb Hct Plt Count PT INR APTT Heparin Anti-Xa Level 0.72 H POC Glucose 128 H 187 H 04/27/20 04/27/20 04/27/20 03:57 03:57 06:44 Hgb 10.1 Hct 30.8 Plt Count 207 PT 13.6 INR 1.03 APTT 38.3 H Heparin Anti-Xa Level POC Glucose 113 H 04/27/20 04/27/20 04/27/20 10:27 12:00 16:53 Hgb Hct Plt Count PT INR APTT Heparin Anti-Xa Level 0.29 L POC Glucose 136 H 137 H 04/27/20 18:09 Hgb Hct Plt Count PT INR APTT Heparin Anti-Xa Level 0.27 L POC Glucose
[2020-04-27] MEDS ORDERED: HALOPERIDOL 5 MG TAB PO SCH (22:00)
[2020-04-27] MEDS ORDERED: ALUM-MAG HYDROXIDE-SIMETHICONE 200-200-20MG/5ML ORAL LIQD 30 ML PO PRN (22:50)
[2020-04-28] MEDS: HEPARIN/ 0.45% NACL DRIP 25,000 UNIT/500 ML BAG IV SCH (03:28)
[2020-04-28] MEDS: glyBURIDE 5 MG TAB PO SCH (08:40)
[2020-04-28] MEDS: INSULIN REGULAR, HUMAN 100 UNIT/ML 3ML VIAL SUB-Q SCH ×2 (08:40→12:12)
[2020-04-28] MEDS: PRENATAL VIT27-FE FUMARATE-FOLIC ACID VIT TAB PO SCH (09:03)
[2020-04-28] MEDS ORDERED: ENOXAPARIN 100 MG/1 ML INJ SUB-Q SCH (10:00)
--- NOTE | 2020-04-28 11:56 | Vascular Lab Report ---
DUPLEX DOPPLER LOWER EXTREMITY VEINS, BILATERAL INDICATION / CLINICAL INFORMATION: DVT. Previous pulmonary embolism. TECHNIQUE: Duplex doppler imaging was performed through the veins of both lower extremities using venous val db and other maneuvers. COMPARISON: 04/26/2020 FINDINGS: RIGHT COMMON FEMORAL VEIN: Negative. RIGHT FEMORAL VEIN: Negative. RIGHT POPLITEAL VEIN: Negative. RIGHT CALF VEINS: Negative. LEFT COMMON FEMORAL VEIN: Negative. LEFT FEMORAL VEIN: Negative. LEFT POPLITEAL VEIN: Negative. LEFT CALF VEINS: Negative. ADDITIONAL FINDINGS: None. IMPRESSION: 1. No sonographic evidence for DVT in either lower extremity. Signer Name: Jose Mckeon MD Signed: 04/28/2020 11:52 AM Workstation Name: [id number]
--- NOTE | 2020-04-28 12:06 | Consultation ---
History of Present Illness Consult date: 04/28/20 History of present illness: Patient is a at 34+0wks with di/di twins and now pulmonary embolus. The patient denies any acute events overnight. Denies CTX/VB/LOF. +FM x 2. Feels well. Past History Past Medical History: other (GDM, Schizophrenia, obesity (class III), h/o pre-E. 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 Family/Genetic History: diabetes, hypertension - Obstetrical History : 5 Medications and Allergies Allergies Allergy/AdvReac Type Severity Reaction Status Date / Time No Known Allergies Allergy Verified 09/30/17 14:22 Home Medications Medication Instructions Recorded Confirmed Last Taken Type Haldol 5 mg PO DAILY 04/11/20 04/25/20 04/24/20 21:00 History Aspirin [Aspirin BABY CHEW TAB] 81 mg PO QDAY tab.chew 04/12/20 04/25/20 04/24/20 21:00 Rx glyBURIDE [Diabeta] 2.5 mg PO QHS #30 tablet 04/12/20 04/25/20 04/24/20 21:00 Rx glyBURIDE [Diabeta] 5 mg PO QAM #30 tablet 04/12/20 04/25/20 04/24/20 21:00 Rx haloperidoL [Haldol] 5 mg PO HS tablet 04/12/20 04/25/20 04/24/20 21:00 Rx Enoxaparin 100 mg SUB-Q Q12HR #60 syringe 04/28/20 Unknown Rx Active Meds: Active Medications Acetaminophen (Tylenol) 650 mg PO Q4H PRN PRN Reason: Pain MILD(1-3)/Fever >100.5/DIAZ Al Hydrox/Mg Hydrox/Simethicone (Alum-Mag Hydrox-Simeth 921-032-84gj/5ml) 30 ml PO Q4H PRN PRN Reason: Indigestion Last Admin: 04/27/20 23:01 Dose: 30 ml Documented by: Docusate Sodium (Colace) 100 mg PO Q12H PRN PRN Reason: Constipation Enoxaparin Sodium (Enoxaparin) 100 mg SUB-Q Q12HR NABIL Last Admin: 04/28/20 09:03 Dose: 100 mg Documented by: Glyburide (Diabeta) 5 mg PO BIDDIAB [facility] Last Admin: 04/28/20 08:40 Dose: 5 mg Documented by: Haloperidol (Haldol) 5 mg PO DAILY@2200 [facility] Last Admin: 04/27/20 22:33 Dose: 5 mg Documented by: Insulin Human Regular (Humulin R) 0 unit SUB-Q ACHS [facility]; Protocol Last Admin: 04/28/20 08:40 Dose: Not Given Documented by: Multivitamins/Iron/Calcium ( Vitamin) 1 each PO QDAY [facility] Last Admin: 04/28/20 09:03 Dose: 1 each Documented by: - Vital Signs Vital signs: Vital Signs Temp Pulse Resp BP 98.7 F 137 H 16 113/72 04/25/20 17:23 04/25/20 17:23 04/25/20 17:23 04/25/20 17:23 Temp Pulse Resp BP Pulse Ox 98.2 F 109 H 99 H 110/66 96 04/28/20 08:36 04/28/20 08:36 04/28/20 08:36 04/28/20 08:36 04/28/20 04:18 - Obstetrical FHR: category 1 FHR comments: Times x2 Uterine Contraction Pattern: Absent Results Result Diagrams: 04/27/20 03:57 04/25/20 Unknown Abnormal lab results 04/27/20 04/27/20 04/27/20 Range/Units 16:53 18:09 21:04 Heparin Anti-Xa Level 0.27 L (0.3-0.7) U.I./ml POC Glucose 137 H 144 H (70-105) 04/28/20 Range/Units 02:19 Heparin Anti-Xa Level 0.29 L (0.3-0.7) U.I./ml POC Glucose (70-105) All other labs normal. Assessment and Plan IMPRESSIONS: Dichorionic IUP at 34 weeks Pulmonary embolus, clinically stable S/P hepartin gtt, now on Therapeutic lovenox 100mg BID Gestational diabetes mellitus, on glyburide 2.5mg BID RECOMMENDATIONS: -The patient has been transitioned to therapeutic lovenox and appears clinically stable with appropriate O2 saturations. Given deemed clinically stable by her primary OBGYN, the patient may be discharged home -Continue therapeutic lovenox 100mg BID -The patient should follow up with Maternal- Medicine and her OBGYN this week. -Assess fasting and 2hr postprandial blood sugars as an outpatient. Continue glyburide. -Weekly BPPs with [facility] -Obtain an obstetrical anesthesiology consultation as an outpatient -Delivery at 38 weeks is recommended due to dichorionic twins. delivery should be reserved for the routine obstetrical indications. -Anti-coagulation should be discontinued 24 hours prior to delivery. Upon presentation to labor and delivery, the patient should have assessment of her coagulation studies to ensure Lovenox washout. -Anti-coagulation should be re-initiated 6 hours after a vaginal delivery or 12 hours after a delivery, as long as bleeding is controlled. Anti-coagulation should be continued for 6 weeks after delivery. Thank you for the consultation. Zaid Brumfield MD FACOG [facility] [place]
[2020-04-28 12:08] VITALS: BP 103/66
--- NOTE | 2020-04-28 14:05 | Progress Note ---
Subjective - Subjective Date of service: 04/28/20 Principal diagnosis: Acute PE, Carli twin gestation Interval history: stable for d/c home, has been transitioned to lovenox 100mg BID pt understands plan of care PE benign, respiratory status improved status reassuring overallx2 no OB complaints FUP OB/APA in one week Luis Yanes MD Objective - Vital Signs Vital Signs: Vital Signs - 12hr 04/28/20 04/28/20 04/28/20 04:18 08:36 12:07 Temperature 98.0 F 98.2 F 98 F Pulse Rate 98 H 109 H 99 H Respiratory 18 99 H 18 Rate Blood Pressure 104/62 Blood Pressure 110/66 103/66 [Left] O2 Sat by Pulse 96 97 Oximetry - Labs Labs: Abnormal Labs 04/25/20 04/25/20 04/26/20 17:49 Unknown 14:20 MCV 78 L MCH 26 L RDW 15.4 H Archuleta % (Auto) 9.2 H APTT Heparin Anti-Xa Level Sodium 135 L Carbon Dioxide 17 L BUN 4 L Creatinine 0.5 L Glucose 169 H POC Glucose 128 H ALT 6 L Alkaline Phosphatase 171 H Albumin 3.3 L 04/26/20 04/26/20 04/27/20 21:14 21:24 03:57 MCV MCH RDW Archuleta % (Auto) APTT 38.3 H Heparin Anti-Xa Level 0.72 H Sodium Carbon Dioxide BUN Creatinine Glucose POC Glucose 187 H ALT Alkaline Phosphatase Albumin 04/27/20 04/27/20 04/27/20 06:44 10:27 12:00 MCV MCH RDW Archuleta % (Auto) APTT Heparin Anti-Xa Level 0.29 L Sodium Carbon Dioxide BUN Creatinine Glucose POC Glucose 113 H 136 H ALT Alkaline Phosphatase Albumin 04/27/20 04/27/20 04/27/20 16:53 18:09 21:04 MCV MCH RDW Archuleta % (Auto) APTT Heparin Anti-Xa Level 0.27 L Sodium Carbon Dioxide BUN Creatinine Glucose POC Glucose 137 H 144 H ALT Alkaline Phosphatase Albumin 04/28/20 02:19 MCV MCH RDW Archuleta % (Auto) APTT Heparin Anti-Xa Level 0.29 L Sodium Carbon Dioxide BUN Creatinine Glucose POC Glucose ALT Alkaline Phosphatase Albumin Laboratory Results - last 24 hr 04/27/20 04/27/20 04/27/20 16:53 18:09 21:04 Heparin Anti-Xa Level 0.27 L POC Glucose 137 H 144 H 04/28/20 04/28/20 04/28/20 02:19 08:22 12:03 Heparin Anti-Xa Level 0.29 L POC Glucose 104 86
--- NOTE | 2020-04-28 14:09 | Discharge Summary ---
Providers - Providers Date of Admission: 04/26/20 15:25 Date of discharge: 04/28/20 Attending physician: FRANKLIN MAYEN JR, MD Primary care physician: FRANKLIN MAYEN JR, MD Hospitalization Reason for admission: other (Acute Pulmonary Embolus, DI/DI twins in third trimester) Condition at discharge: Stable Disposition: DC-01 TO HOME OR SELFCARE Plan - Discharge Medications Prescriptions: Enoxaparin 100 mg SUB-Q Q12HR #60 syringe - Provider Discharge Summary Activity: other (as tolerated) Diet: routine Additional instructions: [] Smoking cessation referral if applicable(refer to patient education folder for contact #) [] Refer to [facility] Booklet Call your doctor immediately for: * Fever > 100.5 * Heavy vaginal bleeding ( >1 pad per hour) * Severe persistent headache * Shortness of breath * Reddened, hot, painful area to leg or breast * Drainage or odor from incision. * Keep incision clean and dry at all times and follow doctor's instructions regarding bathing/showering - Follow up plan Follow up: FRANKLIN MAYEN JR, MD [Primary Care Provider] - 7 Days
--- NOTE | 2020-04-28 14:13 | Progress Note ---
Assessment and Plan BLE venous Dopplers neg for acute DVT. Obtain echo. Cont full dosage lovenox BID per primary team. Pt seen in conjunction with Dr. Bernardo Cates who agrees with assessment and plan of care. - Patient Problems (1) Acute pulmonary embolism Current Visit: Yes Status: Acute (2) Twin gestation in third trimester Current Visit: Yes Status: Acute (3) Gestational diabetes Current Visit: Yes Status: Chronic (4) Obesity Current Visit: Yes Status: Chronic (5) Schizophrenia Current Visit: No Status: Chronic Subjective Date of service: 04/28/20 Principal diagnosis: Acute PE, Carli twin gestation Interval history: pt resting in bed, no current cardiac complaints. tele reviewed- in ST HR 100s - 110s. Objective Last Vital Signs Temp 98 F 04/28/20 12:07 Pulse 99 H 04/28/20 12:07 Resp 18 04/28/20 12:07 BP 103/66 04/28/20 12:07 Pulse Ox 97 04/28/20 12:07 - Physical Examination General: No Apparent Distress HEENT: Positive: EOMI, Normocephaly, Mucus Membranes Moist Neck: Positive: neck supple, trachea midline. Negative: JVD/HJR Cardiac: Positive: Regular Rhythm, S1/S2 Lungs: Positive: Decreased Breath Sounds Neuro: Positive: Grossly Intact Abdomen: Positive: Soft, Active Bowel Sounds. Negative: Tender Skin: Negative: Rash Musculoskeletal: No Fluid Collection, No Pain, Normal Range of Motion Extremities: Present: upper extr. pulses, lower extr. pulses. Absent: edema - Imaging and Cardiology EKG: report reviewed, image reviewed Echo: pending - EKG Sinus rhythms and dysrhythmias: sinus tachycardia
--- NOTE | 2020-04-28 14:32 | Progress Note ---
Assessment and Plan Assessment and plan: 25 yo at 33w6d c/b GDM (on glyburide), Hx PIH in 2018 (on Aspirin), schizophrenia (on Haldol) with di/di twin presenting from [facility] clinic with complaint of SOB x 1-2 days and mild chest discomfort associated with activity. VQ scan performed today showed high to intermediate probability for acute PE. Patient has been started on therapeutic dose of heparin drip and medicine service has been consulted for further evaluation and management. Patient denies chest pain, nausea, vomiting. Possible acute PE -Continue heparin drip for now- - Obtain Pulmonary consult - If respiratory status improves, patient will be medically cleared for discharge on Enoxaparin -Continue breathing treatment as needed -Monitor H&H -Lower extremity Doppler has been negative - Check Doppler lower ext Gestational diabetes, sliding scale of insulin as needed QA CHS History of schizophrenia, no acute psychosis -Continue home medications if safe to use during -we will defer to primary -If needed can consider psych consult Morbid obesity, dietary recommendation 33 WK 6 D IUP DVT prophylaxis, continue heparin drip 04/28: Patient seen and examined, clinically stable for discharge. medically stable for discharge, patient educated on Enoxaparin use and self administratio n. Meds ordered. Discussed With nursing staff. History Interval history: Patient seen and examined clinically stable no new complaints at this time. no further shortness of breath Hospitalist Physical - Physical exam Narrative exam: VITAL SIGNS: Reviewed. GENERAL: The patient appears normally developed, Vital signs as documented. HEAD: No signs of head trauma. EYES: Pupils are equal. Extraocular motions intact. EARS: Hearing grossly intact. MOUTH: Oropharynx is normal. NECK: No adenopathy, no JVD. CHEST: Chest with clear breath sounds bilaterally. No wheezes, rales, or rhonchi. CARDIAC: Regular rate and rhythm. S1 and S2, without murmurs, gallops, or rubs. VASCULAR: No Edema. Peripheral pulses normal and equal in all extremities. ABDOMEN: Soft, non tender and non distended. GravidUS rebound or guarding, and no masses palpated. Bowel Sounds normal. MUSCULOSKELETAL: Good range of motion of all major joints. Extremities without clubbing, cyanosis or edema. NEUROLOGIC EXAM: Alert and oriented x 3 No focal sensory or strength deficits. Speech normal. Follows commands. PSYCHIATRIC: Mood normal. SKIN: detail exam as documented in skin assessment - Constitutional Vitals: Temp Pulse Resp BP Pulse Ox 98 F 99 H 18 103/66 97 04/28/20 12:07 04/28/20 12:07 04/28/20 12:07 04/28/20 12:07 04/28/20 12:07 General appearance: Present: no acute distress HEART Score - HEART Score Troponin: Troponin T < 0.010 ng/mL (0.00-0.029) 04/25/20 Unknown Results - Labs CBC & Chem 7: 04/27/20 03:57 04/25/20 Unknown Labs: Laboratory Last Values WBC 8.2 K/mm3 (4.5-11.0) 04/25/20 17:49 RBC 4.44 M/mm3 (3.65-5.03) 04/25/20 17:49 Hgb 10.1 gm/dl (10.1-14.3) 04/27/20 03:57 Hct 30.8 % (30.3-42.9) 04/27/20 03:57 MCV 78 fl (79-97) L 04/25/20 17:49 MCH 26 pg (28-32) L 04/25/20 17:49 MCHC 33 % (30-34) 04/25/20 17:49 RDW 15.4 % (13.2-15.2) H 04/25/20 17:49 Plt Count 207 K/mm3 (140-440) 04/27/20 03:57 Lymph % (Auto) 21.1 % (13.4-35.0) 04/25/20 17:49 Mccormick % (Auto) 9.2 % (0.0-7.3) H 04/25/20 17:49 Eos % (Auto) 1.4 % (0.0-4.3) 04/25/20 17:49 Baso % (Auto) 0.4 % (0.0-1.8) 04/25/20 17:49 Lymph # 1.7 K/mm3 (1.2-5.4) 04/25/20 17:49 Mccormick # 0.8 K/mm3 (0.0-0.8) 04/25/20 17:49 Eos # 0.1 K/mm3 (0.0-0.4) 04/25/20 17:49 Baso # 0.0 K/mm3 (0.0-0.1) 04/25/20 17:49 Seg Neutrophils % 67.9 % (40.0-70.0) 04/25/20 17:49 Seg Neutrophils # 5.6 K/mm3 (1.8-7.7) 04/25/20 17:49 PT 13.6 Sec. (12.2-14.9) 04/27/20 03:57 INR 1.03 (0.87-1.13) 04/27/20 03:57 APTT 38.3 Sec. (24.2-36.6) H 04/27/20 03:57 Heparin Anti-Xa Level 0.29 U.I./ml (0.3-0.7) L 04/28/20 02:19 Sodium 135 mmol/L (137-145) L 04/25/20 Unknown Potassium 3.9 mmol/L (3.6-5.0) 04/25/20 Unknown Chloride 103.0 mmol/L (98-107) 04/25/20 Unknown Carbon Dioxide 17 mmol/L (22-30) L 04/25/20 Unknown Anion Gap 19 mmol/L 04/25/20 Unknown BUN 4 mg/dL (7-17) L 04/25/20 Unknown Creatinine 0.5 mg/dL (0.6-1.2) L 04/25/20 Unknown Estimated GFR > 60 ml/min 04/25/20 Unknown BUN/Creatinine Ratio 8 % 04/25/20 Unknown Glucose 169 mg/dL (65-100) H 04/25/20 Unknown POC Glucose 86 (70-105) 04/28/20 12:03 Calcium 9.8 mg/dL (8.4-10.2) 04/25/20 Unknown Total Bilirubin 0.70 mg/dL (0.1-1.2) 04/25/20 Unknown AST 15 units/L (5-40) 04/25/20 Unknown ALT 6 units/L (7-56) L 04/25/20 Unknown Alkaline Phosphatase 171 units/L (35-129) H 04/25/20 Unknown Troponin T < 0.010 ng/mL (0.00-0.029) 04/25/20 Unknown Total Protein 6.7 g/dL (6.3-8.2) 04/25/20 Unknown Albumin 3.3 g/dL (3.9-5) L 04/25/20 Unknown Albumin/Globulin Ratio 1.0 % 04/25/20 Unknown Coronavirus (PCR) Negative (Negative) 04/26/20 Unknown Blood Type O POSITIVE 04/26/20 16:29 Antibody Screen Negative 04/26/20 16:29 Guerrero/IV: Voiding Method Toilet IV Catheter Type [Left Hand] INT / Saline Lock Active Medications - Current Medications Current Medications: Generic Name Dose Route Start Last Admin Trade Name Freq PRN Reason Stop Dose Admin Acetaminophen 650 mg 04/26/20 13:23 Tylenol PO Q4H PRN Pain MILD(1-3)/Fever >100.5/DIAZ Al Hydrox/Mg Hydrox/Simethicone 30 ml 04/27/20 22:50 04/27/20 23:01 Alum-Mag Hydrox-Simeth 709-309-55pt/5ml PO 30 ml Q4H PRN Administration Indigestion Docusate Sodium 100 mg 04/26/20 13:23 Colace PO Q12H PRN Constipation Enoxaparin Sodium 100 mg 04/28/20 10:00 04/28/20 09:03 Enoxaparin SUB-Q 100 mg Q12HR NABIL Administration Glyburide 5 mg 04/26/20 17:00 04/28/20 08:40 Diabeta PO 5 mg BIDDIAB NABIL Administration Haloperidol 5 mg 04/27/20 22:00 04/27/20 22:33 Haldol PO 5 mg DAILY@2200 [facility] Administration Insulin Human Regular 0 unit 04/27/20 07:30 04/28/20 12:12 Humulin R SUB-Q Not Given ACHS [facility] Protocol Multivitamins/Iron/Calcium 1 each 04/27/20 10:00 04/28/20 09:03 Vitamin PO 1 each QDAY [facility] Administration
== END 2020-04-28 17:11 | disposition home or self-care (01) ==
LOC: APU 16:17 → TRG 16:17 → LD 17:59 → TRG 04-26 15:21 → INTOOBSV 04-26 15:25 → LD 04-26 15:25 → 3A 04-26 15:29 → 4A 04-27 10:22
PROVIDERS: ADMIT Obstetrics & Gynecology; ATTEND Obstetrics & Gynecology
DX: O26.893 Other specified pregnancy related conditions, third trimester (principal); Z20.828 Contact with and (suspected) exposure to other viral communicable diseases; R06.02 Shortness of breath; O30.043 Twin pregnancy, dichorionic/diamniotic, third trimester; O24.415 Gestational diabetes mellitus in pregnancy, controlled by oral hypoglycemic drugs; O99.343 Other mental disorders complicating pregnancy, third trimester; F20.9 Schizophrenia, unspecified; O99.213 Obesity complicating pregnancy, third trimester; E66.9 Obesity, unspecified; O13.3 Gestational [pregnancy-induced] hypertension without significant proteinuria, third trimester; O88.213 Thromboembolism in pregnancy, third trimester; I26.99 Other pulmonary embolism without acute cor pulmonale; Z87.59 Personal history of other complications of pregnancy, childbirth and the puerperium; Z79.82 Long term (current) use of aspirin; Z79.899 Other long term (current) drug therapy; Z3A.33 33 weeks gestation of pregnancy; Z68.42 Body mass index [BMI] 45.0-49.9, adult
CPT/HCPCS: 36415; 71046; 78580; 80053; 82962; 84484; 85014; 85018; 85025; 85049; 85520; 85610; 85730; 86850; 86900; 86901; 93005; 93970; 94760; 96361; 96365; 96366; 96372; A9540; G0378; J1644; J1650; J7120; U0003; J1815